=== PATIENT | female | born 1960 | race Caucasian/White ===

== ENCOUNTER 2018-08-06 05:54 | Inpatient (IN) ==
[2018-08-06] MEDS ORDERED: ONDANSETRON INJ 2 MG/ML 2 ML VIAL IV STA (06:14)
[2018-08-06] MEDS ORDERED: HYDROmorphone INJ 1 MG/ML SYRINGE IV STA ×2 (06:14→07:09)
[2018-08-06 06:39] LABS: Eosinophils # (auto) 0.03 K/uL (0-0.5); Eosinophils % (auto) 1.1 %; Hematocrit (blood only) 35.5 % (37-47); Hemoglobin 12.3 g/dL (12.0-16.0); Immature Granulocytes # (auto) 0.03 K/uL (0.00-0.02); Immature Granulocytes % (auto) 1.1 %; Lymphocytes # (auto) 0.51 K/uL (1.2-3.4); Lymphocytes % (auto) 18.5 %; Mean Corpuscular Hgb Conc 34.6 g/dL (32-36); Mean Corpuscular Volume 80.5 fL (80-100); Mean Platelet Volume 9.2 fL (7.4-10.4); Monocytes # (auto) 0.18 K/uL (0.11-0.59); Monocytes % (auto) 6.5 %; Neutrophils % (auto) 72.8 %; Platelet Count 164 K/uL (130-400); RDW Coefficient of Variation 14.5 % (11.5-14.5); RDW Standard Deviation 41.5 fL (36.4-46.3); Red Blood Count 4.41 M/uL (4.2-5.4); White Blood Count 2.75 K/uL (4.8-10.8)
[2018-08-06 06:56] LABS: Alanine Aminotransferase 95 U/L (12-78); Albumin Level 3.6 gm/dl (3.4-5.0); Aspartate Aminotransferase 96 U/L (15-37); BUN Creatinine Ratio 11.6 (10-20); Blood Urea Nitrogen 14 mg/dl (7-18); Calcium 10.1 mg/dl (8.5-10.1); Carbon Dioxide 26 mmol/L (21-32); Chloride 101 mmol/L (98-107); Est GFR (African American) 59.7; Est GFR (Non-African American) 51.5; Glucose 267 mg/dl (70-99); Potassium 3.7 mmol/L (3.5-5.1); Sodium 134 mmol/L (136-145)
[2018-08-06 06:59] LABS: Albumin Globulin Ratio 0.9 (0.9-2); Alkaline Phosphatase 161 U/L (45-117); Bilirubin,Total 0.9 mg/dl (0.2-1); Globulin 4.1 gm/dl (2.5-4.0); Total Protein 7.7 gm/dl (6.4-8.2)
[2018-08-06 07:08] LABS: Appearance Urine Clear (Clear); Bacteria Urine Automated Negative (Negative); Bilirubin Urine Negative (Negative); Blood Urine Trace (Negative); Color Urine Yellow; Glucose Urine UA 3+ (Negative); Ketones Urine Negative (Negative); Leukocyte Esterase Urine Negative (Negative); Nitrite Urine Negative (Negative); Protein Urine 1+ (Negative); RBC Urine Automated 0-4 /hpf (0-4); Specific Gravity Urine 1.012 (1.000-1.030); Urobilinogen Urine Negative (Negative); pH Urine 6.5 (4.5-7.5)
--- NOTE | 2018-08-06 07:14 | CT Scan Report ---
CT lumbar spine wo con CT DOSE: 1851.10 mGy.cm CLINICAL HISTORY: eval for mets HISTORY OF CANCER. BACK PAIN. TECHNIQUE: Helical images were acquired in transverse plane. Reformatted sagittal and coronal images were reviewed. A dose lowering technique was utilized adhering to the principles of ALARA. CONTRAST: No contrast was administered COMPARISON STUDY: None. FINDINGS: L1-2 level: There is a mild circumferential disc bulge. There is no significant spinal or foraminal s tenosis L2-3 level: There is a mild circumferential disc bulge. There is mild spinal stenosis L3-4 level: There is a mild circumferential disc bulge. There is mild spinal stenosis L4-5 level: There is marked degenerative changes within the disc. There is a circumferential disc bul ge. There is mild to moderate spinal stenosis L5-S1 level: There is disc degeneration. There is a circumferential disc bulge. There is right-sided foraminal narrowing. No acute fractures are visualized. No destructive lesions are visualized. There are enlarged aortocaval lymph nodes. There is suspected mild bilateral hydronephrosis. IMPRESSION: 1. Multilevel degenerative changes with multilevel disc bulges. multilevel spinal stenosis which is m ild to moderate at the L4-5 level. 2. Retroperitoneal adenopathy 3. Suspected mild bilateral hydronephrosis 4. No acute fractures. No destructive lesions are visualized on CT scanning. Electronically signed by: Karthik Murdock M.D. 08/06/2018 7:12 AM
--- NOTE | 2018-08-06 07:33 | CT Scan Report ---
CT OF THE PELVIS WITHOUT CONTRAST CLINICAL HISTORY: Left pelvic pain. Evaluate left hemipelvis to evaluate for metastases. COMPARISON STUDY: No previous studies for comparison. TECHNIQUE: Axial images of the pelvis were obtained without IV contrast. Sagittal and coronal reconst ructions were viewed. FINDINGS: Please get that the lumbar spine CT will be reported separately. No fracture or suspicious lesion is identified within the pelvis by CT. There is moderate retroperitoneal infiltration that ext ends into the perirectal region. There is no fluid collection is suggest an abscess. This is suboptim ally assessed on this unenhanced exam. There are multiple mildly enlarged para-aortic lymph nodes lucía t measure up to 2 x 1.2 cm. A large left external iliac lymph node measures 5 x 2.2 cm. A 4.1 cm roun d hyperdensity within the right anterior aspect of the pelvis is indeterminate although could reflect a uterine fibroid. Bilateral hydronephrosis, likely moderate in degree, is partially imaged on this exam. There is a 2 mm calculus within the lower pole of the right kidney. The ureters were not imaged in their entirety but no calculi are identified within visualized portions of the ureters. IMPRESSION: 1. No acute fracture or suspicious lesion within the pelvis by CT. 2. Pathologic left external lymph node which is suspicious for alba spread of disease. In addition, multiple mildly enlarged para-aortic and left iliac nodes. 3. Suspected moderate bilateral hydronephrosis, partially imaged on this exam. 2 mm right renal calcu benito. No ureteral calculi within visualized portions of the ureters. 4. Retroperitoneal/perirectal infiltration, a nonspecific finding. 5. 4.1 cm round hyperdensity within the right anterior aspect of the pelvis which is indeterminate bu t may reflect a fibroid. Electronically signed by: Frandy Bellamy M.D. 08/06/2018 7:31 AM
--- NOTE | 2018-08-06 08:03 | Emergency Department Note ---
Entered by Cynthia Phan acting as a scribe for Sofie Milan DO History of Present Illness General Chief complaint: Back Injury/Pain Stated complaint: BACK PAIN Time Seen by Provider: 08/06/18 06:05 Source: patient and family () Limitations: no limitations History of Present Illness Onset (ago): hour(s) 8 Location: back Severity: severe Pain Consistency: + constant Maximum Pain Intensity: 10 Relieved By: + none Associated symptoms: + nausea/vomiting; no chest pain and no shortness of breath The patient is a 58 year old female who presents to the Emergency Room with complaints of constant severe left-sided back pain that began last night at 2200. Her , at bedside notes that she complained of a headache throughout the day yesterday. The patient complains of vomiting. She denies any chest pain or SOB. The patient denies any modifying factors. She notes that she has stage 4 breast cancer, noting that it had metastasized to her back in the past. The patient's reports that she takes Afinitor. The patient's notes that she has a history of bilateral knee replacements. Her states that she has recently been doing more work, because he broke his leg. Home Medications Home Medications Medication Instructions Recorded Confirmed Type Vitamin Supplements 1 dose PO DAILY 08/06/18 08/06/18 History anastrozole [Arimidex] 1 mg PO DAILY 08/06/18 08/06/18 History everolimus (antineoplastic) 5 mg PO DAILY 08/06/18 08/06/18 History [Afinitor] Allergies Allergy/AdvReac Type Severity Reaction Status Date / Time amoxicillin Allergy Mild RASH Verified 12/08/14 06:41 Past Med/Surg History Medical History Breast cancer Metastasis from breast cancer Surgical History History of knee replacement procedure of left knee History of knee replacement procedure of right knee Social History Preferred Language: Mohawk Communication Ability: Effective Beliefs That Will Affect Care: None Current Living Situation: Spouse and Family Other Information That Helps Us Care for You: No Feels Safe at Home: Yes Safety Concerns: Feels Safe At This Time Smoking Status: Never smoker Hx Alcohol Use: No Hx Substance Use: No Review of Systems See HPI for pertinent positives & negatives. and A total of 10 systems reviewed and were otherwise negative Physical Exam Vital Signs Vital Signs - 24 hr 08/06/18 06:00 08/06/18 07:06 08/06/18 07:57 Temperature 36.4 C L Temperature Source Oral Sepsis Recent Fever Within 48 Hours No Sepsis Action Taken by Nursing No Action Required Pulse Rate 95 H Pulse Rate [Left Finger] 86 84 Pulse Rhythm [Left Finger] Pulse Strength [Left Finger] Respiratory Rate 18 18 14 Respiratory Effort / Characteristics Non-Labored Non-Labored Respiratory Depth Normal Normal Respiratory Pattern Regular Blood Pressure 200/118 H Blood Pressure [Right Arm] 238/134 H 202/117 H Blood Pressure Mean 145 Blood Pressure Mean [Right Arm] 168 145 Blood Pressure Position Standing Blood Pressure Position [Right Arm] Sitting Sitting Pulse Oximetry 97 97 91 Pulse Oximetry [Right Index Finger] Oxygen Delivery Method Room Air Room Air Room Air Oxygen Delivery Method [Right Index Finger] Oxygen Flow Rate Oxygen Flow Rate [Right Index Finger] 08/06/18 08:15 08/06/18 08:25 08/06/18 09:42 Temperature Temperature Source Sepsis Recent Fever Within 48 Hours Sepsis Action Taken by Nursing Pulse Rate Pulse Rate [Left Finger] 71 Pulse Rhythm [Left Finger] Pulse Strength [Left Finger] Respiratory Rate 14 Respiratory Effort / Characteristics Non-Labored Respiratory Depth Normal Respiratory Pattern Regular Blood Pressure Blood Pressure [Right Arm] 179/116 H Blood Pressure Mean Blood Pressure Mean [Right Arm] 137 Blood Pressure Position Blood Pressure Position [Right Arm] Sitting Pulse Oximetry 85 L 88 L 97 Pulse Oximetry [Right Index Finger] Oxygen Delivery Method Room Air Room Air Nasal Cannula Oxygen Delivery Method [Right Index Finger] Oxygen Flow Rate 0 2 Oxygen Flow Rate [Right Index Finger] 08/06/18 09:48 08/06/18 09:50 08/06/18 10:15 Temperature Temperature Source Sepsis Recent Fever Within 48 Hours Sepsis Action Taken by Nursing Pulse Rate Pulse Rate [Left Finger] 77 Pulse Rhythm [Left Finger] Pulse Strength [Left Finger] Respiratory Rate 21 Respiratory Effort / Characteristics Non-Labored Respiratory Depth Normal Respiratory Pattern Blood Pressure Blood Pressure [Right Arm] 190/94 H 161/92 H Blood Pressure Mean Blood Pressure Mean [Right Arm] 126 115 Blood Pressure Position Blood Pressure Position [Right Arm] Sitting Pulse Oximetry 97 Pulse Oximetry [Right Index Finger] Oxygen Delivery Method Nasal Cannula Room Air Oxygen Delivery Method [Right Index Finger] Oxygen Flow Rate Oxygen Flow Rate [Right Index Finger] 08/06/18 10:32 08/06/18 11:33 08/06/18 12:36 Temperature 36.2 C L 36.3 C L Temperature Source Oral Oral Sepsis Recent Fever Within 48 Hours Sepsis Action Taken by Nursing Pulse Rate Pulse Rate [Left Finger] 86 87 76 Pulse Rhythm [Left Finger] Regular Regular Pulse Strength [Left Finger] Normal Normal Respiratory Rate 20 22 16 Respiratory Effort / Characteristics Non-Labored Non-Labored Respiratory Depth Normal Normal Respiratory Pattern Regular Regular Blood Pressure Blood Pressure [Right Arm] 178/106 H 163/95 H 180/110 H Blood Pressure Mean Blood Pressure Mean [Right Arm] 130 117 133 Blood Pressure Position Blood Pressure Position [Right Arm] Lying Lying Pulse Oximetry 98 98 97 Pulse Oximetry [Right Index Finger] Oxygen Delivery Method Room Air Nasal Cannula Nasal Cannula Oxygen Delivery Method [Right Index Finger] Oxygen Flow Rate 2 2 Oxygen Flow Rate [Right Index Finger] 08/06/18 13:45 08/06/18 15:58 08/06/18 16:00 Temperature 36.5 C Temperature Source Oral Sepsis Recent Fever Within 48 Hours Sepsis Action Taken by Nursing Pulse Rate Pulse Rate [Left Finger] 84 94 H Pulse Rhythm [Left Finger] Regular Pulse Strength [Left Finger] Normal Respiratory Rate 16 20 Respiratory Effort / Characteristics Non-Labored Non-Labored Respiratory Depth Normal Normal Respiratory Pattern Regular Blood Pressure Blood Pressure [Right Arm] 153/87 H 170/102 H Blood Pressure Mean Blood Pressure Mean [Right Arm] 109 124 Blood Pressure Position Blood Pressure Position [Right Arm] Lying Pulse Oximetry 94 97 Pulse Oximetry [Right Index Finger] 97 Oxygen Delivery Method Nasal Cannula Nasal Cannula Nasal Cannula Oxygen Delivery Method [Right Index Finger] Nasal Cannula Oxygen Flow Rate 2 2 2 Oxygen Flow Rate [Right Index Finger] 2 08/06/18 16:04 08/06/18 17:36 08/06/18 19:20 Temperature 36.4 C L Temperature Source Oral Sepsis Recent Fever Within 48 Hours Sepsis Action Taken by Nursing Pulse Rate Pulse Rate [Left Finger] 96 H 101 H 95 H Pulse Rhythm [Left Finger] Pulse Strength [Left Finger] Respiratory Rate 18 20 20 Respiratory Effort / Characteristics Non-Labored Respiratory Depth Normal Respiratory Pattern Blood Pressure Blood Pressure [Right Arm] 180/106 H 174/106 H 172/96 H Blood Pressure Mean Blood Pressure Mean [Right Arm] 130 128 121 Blood Pressure Position Blood Pressure Position [Right Arm] Lying Pulse Oximetry 96 Pulse Oximetry [Right Index Finger] Oxygen Delivery Method Nasal Cannula Oxygen Delivery Method [Right Index Finger] Oxygen Flow Rate 2 Oxygen Flow Rate [Right Index Finger] 08/06/18 23:01 Temperature 36.5 C Temperature Source Oral Sepsis Recent Fever Within 48 Hours Sepsis Action Taken by Nursing Pulse Rate Pulse Rate [Left Finger] 95 H Pulse Rhythm [Left Finger] Pulse Strength [Left Finger] Respiratory Rate 18 Respiratory Effort / Characteristics Respiratory Depth Respiratory Pattern Blood Pressure Blood Pressure [Right Arm] 170/92 H Blood Pressure Mean Blood Pressure Mean [Right Arm] 118 Blood Pressure Position Blood Pressure Position [Right Arm] Lying Pulse Oximetry 97 Pulse Oximetry [Right Index Finger] Oxygen Delivery Method Nasal Cannula Oxygen Delivery Method [Right Index Finger] Oxygen Flow Rate 2 Oxygen Flow Rate [Right Index Finger] General: Uncomfortable appearing. HEENT: Head - normocephalic and atraumatic Pupils are equal, round, and reactive to light. Extraocular eye muscles are intact, and sclera are anicteric. Nose - moist nasal mucosa without discharge. Mouth - moist buccal mucosa. Oropharynx is nonerythematous and there is no tonsillar exudate or edema noted. Neck: Supple; no JVD, nuchal rigidity, cervical lymphadenopathy. Heart: Regular rate and rhythm. There is a normal S1 and S2 with no murmurs, clicks, or gallops appreciated. Lungs: Clear to auscultation bilaterally with no wheezes, rales, or rhonchi. Abdomen: Soft, completely nontender, nondistended, with good bowel sounds. There are no palpable pulsatile masses or hepatosplenomegaly. There is no guarding, rigidity, or rebound noted. Extremities: No evidence of cyanosis, clubbing, or edema. There are easily palpable peripheral pulses. Skin: warm and dry with good turgor and no rashes. Pale. Course 0608: Past medical records reviewed. The patient was evaluated in room C05, and a complete history and physical examination were performed. A saline lock was initiated, and labs were drawn as stated above. 0614: Dilaudid 1 mg IV, Zofran 4 mg IV 0659: I checked on the patient. She had gone for CAT scan. She is still complaining of left lower back pain. 07: Dialudid 1 mg IV 0723: I asked the patient if she has a history of hyperglycemia, and she stated that it is "sometimes borderline." Her reported that it's "always between 90 and 100." 0744: I checked on the patient, and she stated that she only had minimal relief from the medication. She told me that she doesn't have a PCP, and she gets all of her care in [place]. 0757: I spoke to Dr. Cho, [facility] hospitalist, about the patient's case. Dr. Cho with further evaluate the patient. Consultations Consultation #1: I spoke to Dr. Cho, [facility] hospitalist, about the patient's case. Dr. Cho with further evaluate the patient. Time: 07:57 Administered Medications Anastrozole (Arimidex) 1 mg PO DAILY [facility] Stop: 09/05/18 10:29 Last Admin: 08/06/18 12:02 Dose: Not Given Documented by: [id number] Dexamethasone (Decadron) 5 mg PO QID DEVI Stop: 09/05/18 12:59 Last Admin: 08/06/18 21:01 Dose: 5 mg Documented by: [id number] Admin: 08/06/18 18:21 Dose: 5 mg Documented by: [id number] Admin: 08/06/18 12:25 Dose: Not Given Documented by: [id number] Heparin Sodium (Porcine) (Heparin Sodium (Porcine)) 5,000 units SQ Q8 DEVI Stop: 09/05/18 15:29 Last Admin: 08/06/18 21:02 Dose: 5,000 units Documented by: [id number] Cosigned by: [id number] Admin: 08/06/18 18:17 Dose: Not Given Documented by: [id number] Sodium Chloride (Nss 1000ml) 1,000 mls @ 80 mls/hr IV .[id number] DEVI Stop: 08/07/18 10:29 Last Admin: 08/06/18 21:06 Dose: 80 mls/hr Documented by: [id number] Infusion: 08/06/18 21:06 Dose: 80 mls/hr Documented by: [id number] Admin: 08/06/18 10:55 Dose: 80 mls/hr Documented by: [id number] Insulin Aspart (Novolog Flexpen) 0 units SC ACHS DEVI Stop: 09/05/18 11:29 Last Admin: 08/06/18 21:03 Dose: 4 units Documented by: [id number] Cosigned by: [id number] Admin: 08/06/18 18:18 Dose: 2 units Documented by: [id number] Cosigned by: [id number] Admin: 08/06/18 12:24 Dose: 6 units Documented by: [id number] Cosigned by: [id number] Miscellaneous (Order Awaiting Action) 1 ea N/A QS DEVI Stop: 09/05/18 11:14 Last Admin: 08/06/18 23:38 Dose: Not Given Documented by: [id number] Admin: 08/06/18 16:21 Dose: Not Given Documented by: [id number] Admin: 08/06/18 12:03 Dose: Not Given Documented by: [id number] Ondansetron HCl (Zofran) 4 mg IV Q4H PRN PRN Reason: Nausea And Vomiting Stop: 09/05/18 10:29 Last Admin: 08/07/18 00:13 Dose: 4 mg Documented by: [id number] Admin: 08/06/18 15:59 Dose: 4 mg Documented by: [id number] Admin: 08/06/18 12:33 Dose: 4 mg Documented by: [id number] Discontinued Medications Amlodipine Besylate (Norvasc) 5 mg PO NOW ONE Stop: 08/06/18 17:40 Last Admin: 08/06/18 18:22 Dose: 5 mg Documented by: [id number] Hydralazine HCl (Hydralazine Hcl) 10 mg IV NOW STA Stop: 08/06/18 08:55 Last Admin: 08/06/18 09:42 Dose: 10 mg Documented by: [id number] Hydralazine HCl (Hydralazine Hcl) 10 mg IV Q6H PRN PRN Reason: Hypertension Stop: 09/05/18 10:29 Last Admin: 08/06/18 16:07 Dose: 10 mg Documented by: [id number] Hydromorphone HCl (Dilaudid) 1 mg IV NOW STA Stop: 08/06/18 06:15 Last Admin: 08/06/18 06:32 Dose: 1 mg Documented by: [id number] Hydromorphone HCl (Dilaudid) 1 mg IV NOW STA Stop: 08/06/18 07:10 Last Admin: 08/06/18 07:16 Dose: 1 mg Documented by: [id number] Metoclopramide HCl (Reglan) 5 mg IV ONE ONE Stop: 08/06/18 17:31 Last Admin: 08/06/18 18:19 Dose: 5 mg Documented by: [id number] Miscellaneous (Patient's Height And/Or Weight Needed) 1 ea N/A Q2H DEVI Stop: 09/05/18 15:14 Last Admin: 08/06/18 16:20 Dose: 1 ea Documented by: [id number] Ondansetron HCl (Zofran) 4 mg IV NOW STA Stop: 08/06/18 06:15 Last Admin: 08/06/18 06:33 Dose: 4 mg Documented by: [id number] Propranolol HCl (Inderal) 40 mg PO NOW STA Stop: 08/06/18 17:41 Last Admin: 08/06/18 18:22 Dose: 40 mg Documented by: [id number] Medical Decision Making Differential Diagnosis The differential diagnosis includes: metastasis to left lumbar spine, metastasis to left pelvis, and left-sided ureteral calculi, or low back strain. Medical Records Attestation: I reviewed the patient's medical records. Home Medications Current Medication List: was personally reviewed by me Laboratory Data Attestation: I reviewed the patient's lab results. Result diagrams: 08/06/18 06:15 08/06/18 06:15 Lab Results 08/06/18 08/06/18 08/06/18 Range/Units 06:15 06:15 06:15 WBC 2.75 L (4.8-10.8) K/uL RBC 4.41 (4.2-5.4) M/uL Hgb 12.3 (12.0-16.0) g/dL Hct 35.5 L (37-47) % MCV 80.5 (80-100) fL MCH 27.9 (25-34) pg MCHC 34.6 (32-36) g/dL RDW Std Deviation 41.5 (36.4-46.3) fL RDW Coeff of [place] 14.5 (11.5-14.5) % Plt Count 164 (130-400) K/uL MPV 9.2 (7.4-10.4) fL Immature Gran % (Auto) 1.1 % Neut % (Auto) 72.8 % Lymph % (Auto) 18.5 % [place] % (Auto) 6.5 % Eos % (Auto) 1.1 % Baso % (Auto) 0.0 % Immature Gran # (Auto) 0.03 H (0.00-0.02) K/uL Neut # (Auto) 2.00 (1.4-6.5) K/uL Lymph # (Auto) 0.51 L (1.2-3.4) K/uL [place] # (Auto) 0.18 (0.11-0.59) K/uL Eos # (Auto) 0.03 (0-0.5) K/uL Baso # (Auto) 0.00 (0-0.2) K/uL PT 9.8 (9.0-12.0) Seconds INR 1.0 (0.9-1.1) APTT 28.6 (21.0-31.0) Seconds PTT Ratio 1.1 Sodium 134 L (136-145) mmol/L Potassium 3.7 (3.5-5.1) mmol/L Chloride 101 (98-107) mmol/L Carbon Dioxide 26 (21-32) mmol/L Anion Gap 7.0 (3-11) BUN 14 (7-18) mg/dl Creatinine 1.16 (0.6-1.2) mg/dl Est Cr Clr Drug Dosing Not Reportable Est GFR ( Amer) 59.7 Est GFR (Non-Af Amer) 51.5 BUN/Creatinine Ratio 11.6 (10-20) Glucose 267 H (70-99) mg/dl POC Glucose (70-99) Calcium 10.1 (8.5-10.1) mg/dl Total Bilirubin 0.9 (0.2-1) mg/dl AST 96 H (15-37) U/L ALT 95 H (12-78) U/L Alkaline Phosphatase 161 H (45-117) U/L Total Protein 7.7 (6.4-8.2) gm/dl Albumin 3.6 (3.4-5.0) gm/dl Globulin 4.1 H (2.5-4.0) gm/dl Albumin/Globulin Ratio 0.9 (0.9-2) Urine Color Urine Appearance (Clear) Urine pH (4.5-7.5) Ur Specific [place] (1.000-1.030) Urine Protein (Negative) Urine Glucose (UA) (Negative) Urine Ketones (Negative) Urine Blood (Negative) Urine Nitrite (Negative) Urine Bilirubin (Negative) Urine Urobilinogen (Negative) Ur Leukocyte Esterase (Negative) Urine WBC (Auto) (0-5) /hpf Urine RBC (Auto) (0-4) /hpf U Hyaline Cast (Auto) (0-5) /lpf U Epithel Cells (Auto) (0-5) /lpf Urine Bacteria (Auto) (Negative) 08/06/18 08/06/18 08/06/18 Range/Units 06:45 11:44 16:48 WBC (4.8-10.8) K/uL RBC (4.2-5.4) M/uL Hgb (12.0-16.0) g/dL Hct (37-47) % MCV (80-100) fL MCH (25-34) pg MCHC (32-36) g/dL RDW Std Deviation (36.4-46.3) fL RDW Coeff of Jazmyne (11.5-14.5) % Plt Count (130-400) K/uL MPV (7.4-10.4) fL Immature Gran % (Auto) % Neut % (Auto) % Lymph % (Auto) % [place] % (Auto) % Eos % (Auto) % Baso % (Auto) % Immature Gran # (Auto) (0.00-0.02) K/uL Neut # (Auto) (1.4-6.5) K/uL Lymph # (Auto) (1.2-3.4) K/uL [place] # (Auto) (0.11-0.59) K/uL Eos # (Auto) (0-0.5) K/uL Baso # (Auto) (0-0.2) K/uL PT (9.0-12.0) Seconds INR (0.9-1.1) APTT (21.0-31.0) Seconds PTT Ratio Sodium (136-145) mmol/L Potassium (3.5-5.1) mmol/L Chloride (98-107) mmol/L Carbon Dioxide (21-32) mmol/L Anion Gap (3-11) BUN (7-18) mg/dl Creatinine (0.6-1.2) mg/dl Est Cr Clr Drug Dosing Est GFR ( Amer) Est GFR (Non-Af Amer) BUN/Creatinine Ratio (10-20) Glucose (70-99) mg/dl POC Glucose 273 H 212 H (70-99) Calcium (8.5-10.1) mg/dl Total Bilirubin (0.2-1) mg/dl AST (15-37) U/L ALT (12-78) U/L Alkaline Phosphatase (45-117) U/L Total Protein (6.4-8.2) gm/dl Albumin (3.4-5.0) gm/dl Globulin (2.5-4.0) gm/dl Albumin/Globulin Ratio (0.9-2) Urine Color Yellow Urine Appearance Clear (Clear) Urine pH 6.5 (4.5-7.5) Ur Specific [place] 1.012 (1.000-1.030) Urine Protein 1+ H (Negative) Urine Glucose (UA) 3+ H (Negative) Urine Ketones Negative (Negative) Urine Blood Trace H (Negative) Urine Nitrite Negative (Negative) Urine Bilirubin Negative (Negative) Urine Urobilinogen Negative (Negative) Ur Leukocyte Esterase Negative (Negative) Urine WBC (Auto) 1-5 (0-5) /hpf Urine RBC (Auto) 0-4 (0-4) /hpf U Hyaline Cast (Auto) 1-5 (0-5) /lpf U Epithel Cells (Auto) 10-20 H (0-5) /lpf Urine Bacteria (Auto) Negative (Negative) 08/06/18 Range/Units 19:52 WBC (4.8-10.8) K/uL RBC (4.2-5.4) M/uL Hgb (12.0-16.0) g/dL Hct (37-47) % MCV (80-100) fL MCH (25-34) pg MCHC (32-36) g/dL RDW Std Deviation (36.4-46.3) fL RDW Coeff of Jazmy[place] (11.5-14.5) % Plt Count (130-400) K/uL MPV (7.4-10.4) fL Immature Gran % (Auto) % Neut % (Auto) % Lymph % (Auto) % [place] % (Auto) % Eos % (Auto) % Baso % (Auto) % Immature Gran # (Auto) (0.00-0.02) K/uL Neut # (Auto) (1.4-6.5) K/uL Lymph # (Auto) (1.2-3.4) K/uL [place] # (Auto) (0.11-0.59) K/uL Eos # (Auto) (0-0.5) K/uL Baso # (Auto) (0-0.2) K/uL PT (9.0-12.0) Seconds INR (0.9-1.1) APTT (21.0-31.0) Seconds PTT Ratio Sodium (136-145) mmol/L Potassium (3.5-5.1) mmol/L Chloride (98-107) mmol/L Carbon Dioxide (21-32) mmol/L Anion Gap (3-11) BUN (7-18) mg/dl Creatinine (0.6-1.2) mg/dl Est Cr Clr Drug Dosing Est GFR ( Amer) Est GFR (Non-Af Amer) BUN/Creatinine Ratio (10-20) Glucose (70-99) mg/dl POC Glucose 264 H (70-99) Calcium (8.5-10.1) mg/dl Total Bilirubin (0.2-1) mg/dl AST (15-37) U/L ALT (12-78) U/L Alkaline Phosphatase (45-117) U/L Total Protein (6.4-8.2) gm/dl Albumin (3.4-5.0) gm/dl Globulin (2.5-4.0) gm/dl Albumin/Globulin Ratio (0.9-2) Urine Color Urine Appearance (Clear) Urine pH (4.5-7.5) Ur Specific [place] (1.000-1.030) Urine Protein (Negative) Urine Glucose (UA) (Negative) Urine Ketones (Negative) Urine Blood (Negative) Urine Nitrite (Negative) Urine Bilirubin (Negative) Urine Urobilinogen (Negative) Ur Leukocyte Esterase (Negative) Urine WBC (Auto) (0-5) /hpf Urine RBC (Auto) (0-4) /hpf U Hyaline Cast (Auto) (0-5) /lpf U Epithel Cells (Auto) (0-5) /lpf Urine Bacteria (Auto) (Negative) Imaging Data Radiologist's Impression: Radiology results as stated below per my review and the radiologist's interpretation: CT lumbar spine wo con CT DOSE: 1851.10 mGy.cm CLINICAL HISTORY: eval for mets HISTORY OF CANCER. BACK PAIN. TECHNIQUE: Helical images were acquired in transverse plane. Reformatted sagittal and coronal images were reviewed. A dose lowering technique was utilized adhering to the principles of ALARA. CONTRAST: No contrast was administered COMPARISON STUDY: None. FINDINGS: L1-2 level: There is a mild circumferential disc bulge. There is no significant spinal or foraminal stenosis L2-3 level: There is a mild circumferential disc bulge. There is mild spinal stenosis L3-4 level: There is a mild circumferential disc bulge. There is mild spinal stenosis L4-5 level: There is marked degenerative changes within the disc. There is a circumferential disc bulge. There is mild to moderate spinal stenosis L5-S1 level: There is disc degeneration. There is a circumferential disc bulge. There is right-sided foraminal narrowing. No acute fractures are visualized. No destructive lesions are visualized. There are enlarged aortocaval lymph nodes. There is suspected mild bilateral hydronephrosis. IMPRESSION: 1. Multilevel degenerative changes with multilevel disc bulges. multilevel spinal stenosis which is mild to moderate at the L4-5 level. 2. Retroperitoneal adenopathy 3. Suspected mild bilateral hydronephrosis 4. No acute fractures. No destructive lesions are visualized on CT scanning. Electronically signed by: Karthik Murdock M.D. 08/06/2018 7:[address] OF THE PELVIS WITHOUT CONTRAST CLINICAL HISTORY: Left pelvic pain. Evaluate left hemipelvis to evaluate for metastases. COMPARISON STUDY: No previous studies for comparison. TECHNIQUE: Axial images of the pelvis were obtained without IV contrast. Sagittal and coronal reconstructions were viewed. FINDINGS: Please get that the lumbar spine CT will be reported separately. No fracture or suspicious lesion is identified within the pelvis by CT. There is moderate retroperitoneal infiltration that extends into the perirectal region. There is no fluid collection is suggest an abscess. This is suboptimally assessed on this unenhanced exam. There are multiple mildly enlarged para-aortic lymph nodes that measure up to 2 x 1.2 cm. A large left external iliac lymph node measures 5 x 2.2 cm. A 4.1 cm round hyperdensity within the right anterior aspect of the pelvis is indeterminate although could reflect a uterine fibroid. Bilateral hydronephrosis, likely moderate in degree, is partially imaged on this exam. There is a 2 mm calculus within the lower pole of the right kidney. The ureters were not imaged in their entirety but no calculi are identified within visualized portions of the ureters. IMPRESSION: 1. No acute fracture or suspicious lesion within the pelvis by CT. 2. Pathologic left external lymph node which is suspicious for alba spread of disease. In addition, multiple mildly enlarged para-aortic and left iliac nodes. 3. Suspected moderate bilateral hydronephrosis, partially imaged on this exam. 2 mm right renal calculus. No ureteral calculi within visualized portions of the ureters. 4. Retroperitoneal/perirectal infiltration, a nonspecific finding. 5. 4.1 cm round hyperdensity within the right anterior aspect of the pelvis which is indeterminate but may reflect a fibroid. Electronically signed by: Frandy Bellamy M.D. 08/06/2018 7:31 AM Blood Pressure Blood Pressure Findings: Elevated blood pressure Blood Pressure Disposition: further management by hospitalist CHOLO Wyman The patient is a 58 year old female who presents to the Emergency Room with complaints of constant severe left-sided back pain that began last night at 2200. The patient has a history of stage IV breast cancer with previous metastasis to T9 in 2011 status post surgery. Patient had currently been receiving oral chemotherapy and was described as being any holding pattern according to the family. The patient did tell me that she stopped taking the chemotherapy approximately 12-16 days ago. The patient's pain in her left low back was sudden in onset today. She did have some hematuria but CT scan showed no evidence of an obvious ureteral calculi. However, there was significant bilateral hydronephrosis and what appeared to be moderate periaortic lymphadenopathy. This lymphadenopathy was concerning in light of the breast cancer history. The patient was also noted to be significantly hypertensive some of this was thought to be situational secondary to pain and anxiety. However, I believe the patient most likely has a history of underlying untreated hypertension. Patient was also noted to be significantly hyperglycemic with no history of this either. The patient was leukopenic. There was no neutropenia. She was afebrile. The patient will require admission to the hospital for intractable left flank pain and further ultrasound evaluation of the kidneys and attention to the blood pressure and hyperglycemia. Impression & Plan Left flank pain, Hyperglycemia, Bilateral hydronephrosis, Metastatic breast cancer, Hypertension, Leukopenia Discharge Plan Visit Data *Final* Discharge Date/Time: 08/06/18 10:15 Chief Complaint: Back Injury/Pain Stated Complaint: BACK PAIN ED Provider: Sofie Milan Discharge Problem: Left flank pain, Hyperglycemia, Bilateral hydronephrosis, Metastatic breast cancer, Hypertension, Leukopenia Patient Disposition: Admitted As Inpatient Discharge Instructions Interventions: ED Discharge Assessment Last Done: 08/06/18 10:15 Discharge Problem: Hypertension Qualifiers: Hypertension type: unspecified Qualified Code(s): I10 - Essential (primary) hypertension Leukopenia Qualifiers: Leukopenia type: other Qualified Code(s): D72.818 - Other decreased white blood cell count The scribe's documentation has been prepared under my direction and personally reviewed by me in its entirety. I confirm that the note above accurately reflects all work, treatment, procedures, and medical decision making performed by me.
--- NOTE | 2018-08-06 08:11 | History & Physical Report ---
Date of Service August 06, 2018 Assessment & Plan (1) Bilateral hydronephrosis: -Admit to [facility] -CT imaging reviewed, mild hydronephrosis due to lymph node involvement, no nephrolithiasis which appears to be obstructing. Consider urology consultation. -Will ask oncology to consult. Patient follows with oncology in [facility], [place], operated by [facility], records have been requested. -Creatinine and BUN are within normal limits, will continue with IVF 80 mL/h -UA does not appear grossly infected, follow UCx, pt denies urinary complaints, tolerating fluid intake well but family is concerned she normally does not drink enough water. -Follow BCx -Pain control with morphine sulfate IV prn and Dilaudid IV if necessary. (2) Metastatic breast cancer: -Originally diagnosed in 2008, metastasis to T9 in 2010. Patient is status post multiple chemotherapy regimens and radiation to the spine. -CT showing degenerative disc at the level of L4-L5, L5-S1, retroperitoneal lymphadenopathy, increased lymphadenopathy around the aorta and iliacs -Oncology consulted, requesting outside records -Continue Arimidex and Afinitor (3) Hypertension: -Patient reports BP is not normally elevated however she does get anxious when in hospitals or around medical personnel -BP is 202/117, will order IV hydralazine in the interim -Consider renal artery (4) Left flank pain: (5) Hyperglycemia: - Glucose elevaed at 267 on PRP at time of admission - ISS with accuchecks and will check A1C now. Pt denies hx of DM or elevated glucose previously. (6) Leukopenia: - WBC is 2.75 with abs. neutrophils of 2.0. Pt is not neutropenic. Denies fevers. DVT ppx: Heparin subq, teds, scds History of Present Illness Chief Complaint: Left flank pain Primary Care Provider: NO PCP This is a 58-year-old female with past medical history of metastatic breast cancer originally diagnosed in 2000-01-27 spine, follows with oncology in [place], currently on Afinitor. She presents today with increased left-sided flank pain which occurred in the middle the night. The patient was unable to sleep through this. She denies radiation of the pain to any other location. Upon presentation to the ER the patient's blood pressure is elevated 202/117 her glucose is 267, elevated liver functions, and has bilateral mild hydronephrosis on CT imaging. Patient reports pain started around 11 PM last night and that she vomited once due to its intensity. She denies any abdominal pain, nausea, bowel changes, urinary changes, fever, sweats or chills. She has been in her normal state of health until yesterday. Patient notes that her pain is aggravated when taking deep breaths but that his it has been significantly improved status post Dilaudid IV 2 mg total. She has been doing more physical activity recently due to her having a surgery on his right lower leg. Allergies Allergy/AdvReac Type Severity Reaction Status Date / Time amoxicillin Allergy Mild RASH Verified 12/08/14 06:41 Home Medications Home Medications Medication Instructions Recorded Confirmed Type Vitamin Supplements 1 dose PO DAILY 08/06/18 08/06/18 History anastrozole [Arimidex] 1 mg PO DAILY 08/06/18 08/06/18 History everolimus (antineoplastic) 5 mg PO DAILY 08/06/18 08/06/18 History [Afinitor] Past Med/Surg History Medical History Hyperglycemia (Acute) Left flank pain (Acute) Bilateral hydronephrosis (Acute) Metastatic breast cancer (Acute) Hypertension (Acute) Leukopenia (Acute) Breast cancer Metastasis from breast cancer Surgical History History of knee replacement procedure of left knee History of knee replacement procedure of right knee Family History Other Family history non-contributory Social History Communication Ability: Effective Beliefs That Will Affect Care: None Current Living Situation: Spouse and Family Other Information That Helps Us Care for You: No Feels Safe at Home: Yes Safety Concerns: Feels Safe At This Time Smoking Status: Never smoker Hx Alcohol Use: No Hx Substance Use: No Review of Systems Constitutional: No fever, sweats or chills Eyes: No diplopia, no worsening or blurred vision ENT: normal hearing, no trouble swallowing Respiratory: No cough, sputum, dyspnea at rest or on exertion Cardiovascular: No chest pain, tightness or palpitations Abdomen: + Left flank pain now improved, no pain, nausea, vomiting, diarrhea or constipation Musculoskeletal: No joint pain, calf pain, swelling Neurologic: No weakness, numbness/tingling, or balance problems Psychiatric: No anxiety or depression Skin: + rash over the left forearm, no itch Physical Exam Vital Signs (Past 24 Hours): Last Vital Signs Temp 36.4 C L 08/06/18 06:00 Pulse 84 08/06/18 07:57 Resp 14 08/06/18 07:57 BP 202/117 H 08/06/18 07:57 Pulse Ox 91 08/06/18 07:57 Physical Exam: General: awake, alert, no apparent distress, + obese Head: Normocephalic, atraumatic ENT: PERRL, EOMI, no pharyngeal exudate, mucous membranes moist Chest: Clear to auscultation, on room air, no adventitious breath sounds Cardiac: Regular rate and rhythm, no murmur, no JVD, normal peripheral pulses, good capillary refill Abdominal: NABS x 4 quadrants, soft, nontender to palpation, no rebound, guarding or tenderness Extremities: + erythematous rash over the left forearm, peripheral edema of BLE nonpitting, otherwise normal inspection, calfs nontender to palpation Psych: Normal mood and affect Neuro: AAO x 3, strength intact bilaterally and related 5/5, no motor deficits, speech is clear, no peripheral sensory deficits Results & Data Diagnostic Findings CT OF THE PELVIS WITHOUT CONTRAST CLINICAL HISTORY: Left pelvic pain. Evaluate left hemipelvis to evaluate for metastases. COMPARISON STUDY: No previous studies for comparison. TECHNIQUE: Axial images of the pelvis were obtained without IV contrast. Sagittal and coronal reconstructions were viewed. FINDINGS: Please get that the lumbar spine CT will be reported separately. No fracture or suspicious lesion is identified within the pelvis by CT. There is moderate retroperitoneal infiltration that extends into the perirectal region. There is no fluid collection is suggest an abscess. This is suboptimally assessed on this unenhanced exam. There are multiple mildly enlarged para-aortic lymph nodes that measure up to 2 x 1.2 cm. A large left external iliac lymph node measures 5 x 2.2 cm. A 4.1 cm round hyperdensity within the right anterior aspect of the pelvis is indeterminate although could reflect a uterine fibroid. Bilateral hydronephrosis, likely moderate in degree, is partially imaged on this exam. There is a 2 mm calculus within the lower pole of the right kidney. The ureters were not imaged in their entirety but no calculi are identified within visualized portions of the ureters. IMPRESSION: 1. No acute fracture or suspicious lesion within the pelvis by CT. 2. Pathologic left external lymph node which is suspicious for alba spread of disease. In addition, multiple mildly enlarged para-aortic and left iliac nodes. 3. Suspected moderate bilateral hydronephrosis, partially imaged on this exam. 2 mm right renal calculus. No ureteral calculi within visualized portions of the ureters. 4. Retroperitoneal/perirectal infiltration, a nonspecific finding. 5. 4.1 cm round hyperdensity within the right anterior aspect of the pelvis which is indeterminate but may reflect a fibroid. CT lumbar spine wo con CT DOSE: 1851.10 mGy.cm CLINICAL HISTORY: eval for mets HISTORY OF CANCER. BACK PAIN. TECHNIQUE: Helical images were acquired in transverse plane. Reformatted sagittal and coronal images were reviewed. A dose lowering technique was utilized adhering to the principles of ALARA. CONTRAST: No contrast was administered COMPARISON STUDY: None. FINDINGS: L1-2 level: There is a mild circumferential disc bulge. There is no significant spinal or foraminal stenosis L2-3 level: There is a mild circumferential disc bulge. There is mild spinal stenosis L3-4 level: There is a mild circumferential disc bulge. There is mild spinal stenosis L4-5 level: There is marked degenerative changes within the disc. There is a circumferential disc bulge. There is mild to moderate spinal stenosis L5-S1 level: There is disc degeneration. There is a circumferential disc bulge. There is right-sided foraminal narrowing. No acute fractures are visualized. No destructive lesions are visualized. There are enlarged aortocaval lymph nodes. There is suspected mild bilateral hydronephrosis. IMPRESSION: 1. Multilevel degenerative changes with multilevel disc bulges. multilevel spinal stenosis which is mild to moderate at the L4-5 level. 2. Retroperitoneal adenopathy 3. Suspected mild bilateral hydronephrosis 4. No acute fractures. No destructive lesions are visualized on CT scanning. Code Status & VTE Plan Code Status Full -was discussed with her and son at bedside. Supervising Physician Co-Signing Physician Notes Patient seen and examined at bedside. During my face to face encounter, I performed a history and physical examination. I reviewed and agree with above documentation, except for the following Patient is having signs of hydronephrosis. I am concerned over lymph nodes perhaps causing the a bilateral obstruction to both of her kidneys. However her creatinine is normal. will monitor. May need urology consult. Hypertensive urgerncy Patient blood pressure is elevated, and will start CCB and beta sheldon x1 and will monitor. Will re-eval in [facility] if this needfs to be continued. (1) Leukopenia Leukopenia type: other Qualified Code(s): D72.818 - Other decreased white blood cell count (2) Hypertension Hypertension type: unspecified Qualified Code(s): I10 - Essential (primary) hypertension
[2018-08-06] MEDS ORDERED: HydrALAZINE HCL 20 MG/ML VIAL IV STA (08:54)
[2018-08-06] MEDS ORDERED: MoRPHine SULFATE 2 MG/ML CARP IV PRN (10:30)
[2018-08-06] MEDS ORDERED: GLUCOSE 40% GEL 15 GM TUBE PO PRN (10:30)
[2018-08-06] MEDS ORDERED: HydrALAZINE HCL 20 MG/ML VIAL IV PRN ×2 (10:30→23:31)
[2018-08-06] MEDS ORDERED: DEXTROSE 50% 50 ML SYRINGE IV PRN (10:30)
[2018-08-06] MEDS ORDERED: GLUCAGON FOR INJ 1 MG VIAL SQ PRN (10:30)
[2018-08-06] MEDS ORDERED: CARBOHYDRATES FOR HYPOGLYCEMIA PO PRN (10:30)
[2018-08-06] MEDS ORDERED: VITAMIN SUPPLEMENTS PO SCH (10:30)
[2018-08-06] MEDS ORDERED: ACETAMINOPHEN 325 MG TAB PO PRN (10:30)
[2018-08-06] MEDS ORDERED: GLUCOSE 10 TABS/TUBE PO PRN (10:30)
[2018-08-06] MEDS: SODIUM CHLORIDE 0.9% 1000ML 1,000 ML IV SCH ×2 (10:55→21:06)
[2018-08-06 11:43] LABS: Partial Thromboplastin Ratio 1.1; Partial Thromboplastin Time 28.6 Seconds (21.0-31.0); Prothrombin Time 9.8 Seconds (9.0-12.0)
[2018-08-06] MEDS: ANASTROZOLE 1 MG TAB PO SCH (12:02)
[2018-08-06] MEDS: INSULIN ASPART 100 UNITS/ML 3 ML PEN SC SCH ×3 (12:24→21:03)
[2018-08-06] MEDS: dexAMETHasone 1 MG TAB PO SCH ×3 (12:25→21:01)
[2018-08-06] MEDS: ONDANSETRON INJ 2 MG/ML 2 ML VIAL IV PRN ×2 (12:33→15:59)
[2018-08-06] MEDS ORDERED: dexAMETHasone 1 MG TAB PO SCH (13:00)
[2018-08-06] MEDS ORDERED: DEXAMETHASONE 5 MG/5 ML UDP PO SCH (13:00)
[2018-08-06] MEDS: PATIENT'S HEIGHT AND/OR WEIGHT NEEDED SCH (16:20)
[2018-08-06] MEDS ORDERED: METOCLOPRAMIDE HCL INJ 5 MG/ML 2 ML VIAL IV ONE (17:30)
[2018-08-06] MEDS ORDERED: AMLODIPINE BESYLATE 5 MG TAB PO ONE (17:39)
[2018-08-06] MEDS ORDERED: PROPRANOLOL HCL 20 MG TAB PO STA (17:40)
[2018-08-06] MEDS: HEPARIN SOD 5,000 UNIT/0.5 ML VIAL SQ SCH ×2 (18:17→21:02)
--- NOTE | 2018-08-06 21:06 | Ultrasound Report ---
US renal/blad retro comp CLINICAL HISTORY: 58 years-old Female presenting with bilateral hydronephrosis. TECHNIQUE: Real-time grayscale and limited color Doppler ultrasound imaging of the kidneys and ceme r was performed. COMPARISON: CT pelvis from 08/06/2018. FINDINGS: Right kidney: Normal echogenicity of renal parenchyma. Right kidney measures 9.7 cm. Moderate hydrone phrosis. No convincing evidence of calculus or mass. Left kidney: Normal echogenicity of renal parenchyma. Left kidney measures 10.9 cm. Moderate hydronep hrosis. No convincing evidence of calculus or mass. Bladder: Decompressed limiting evaluation. Bilateral ureteral jets present. Other: Hypoechoic mass in the midline/right pelvis with minimal vascular flow. This likely correlates to the anteverted uterus. IMPRESSION: 1. Moderate bilateral hydronephrosis. 2. Nonspecific pelvic mass, likely representing the uterus or a uterine fibroid. This would be cynhtia r demonstrated with pelvic ultrasound Electronically signed by: Hubert Brown M.D. 08/06/2018 9:04 PM
[2018-08-07] MEDS: ONDANSETRON INJ 2 MG/ML 2 ML VIAL IV PRN (00:13)
[2018-08-07] MEDS: HEPARIN SOD 5,000 UNIT/0.5 ML VIAL SQ SCH ×3 (05:56→21:43)
[2018-08-07 06:25] LABS: Hematocrit (blood only) 34.9 % (37-47); Hemoglobin 11.5 g/dL (12.0-16.0); Mean Corpuscular Volume 82.5 fL (80-100); Mean Platelet Volume 9.3 fL (7.4-10.4); Platelet Count 174 K/uL (130-400); RDW Coefficient of Variation 15.2 % (11.5-14.5); RDW Standard Deviation 44.3 fL (36.4-46.3); Red Blood Count 4.23 M/uL (4.2-5.4); White Blood Count 2.26 K/uL (4.8-10.8)
[2018-08-07 06:34] LABS: Estimated Average Glucose 269 mg/dl
[2018-08-07 07:10] LABS: Albumin Globulin Ratio 0.8 (0.9-2); BUN Creatinine Ratio 15.8 (10-20); Bilirubin,Total 0.6 mg/dl (0.2-1); Calcium 8.7 mg/dl (8.5-10.1); Creatinine Clr Calc Pharmacy 45.8 ml/min; Est GFR (African American) 47.1; Est GFR (Non-African American) 40.7; Globulin 3.9 gm/dl (2.5-4.0); Magnesium 1.7 mg/dl (1.8-2.4); Potassium 4.3 mmol/L (3.5-5.1); Total Protein 6.9 gm/dl (6.4-8.2)
[2018-08-07] MEDS: dexAMETHasone 1 MG TAB PO SCH ×2 (09:10→12:35)
[2018-08-07] MEDS: ANASTROZOLE 1 MG TAB PO SCH (09:12)
[2018-08-07] MEDS: INSULIN ASPART 100 UNITS/ML 3 ML PEN SC SCH ×4 (09:13→21:44)
--- NOTE | 2018-08-07 16:34 | Urology Consultation ---
Date of Consultation August 07, 2018 Assessment & Plan (1) Bilateral hydronephrosis: Bilateral hydronephrosis in the presence of lymph node enlargement d/t metastatic breast cancer. Cr remains WNL. Flank pain has resolved. Voiding spontaneously without bother. UC&S pending. Discussed with patient that we will continue to monitor her kidney function and flank pain. If worsening, may consider ureteral stent placement. Patient is doing well at this time. Thank you for the consult, will continue to follow along with primary service. History of Present Illness Attending Physician: Alexis Tejada History of Present Illness 58YO female with metastatic breast cancer (Managed in [place] by [facility]) and bilateral hydronephrosis. Patient reports worsening L flank pain bringing her to the ER. CT abd/pelvis and renal US completed upon arrival, demonstrating mild/moderate bilateral hydronephrosis and pelvic lymph node enlargement. No ureteral calculi or masses appreciated. A punctate nonobstructive R renal stone is also noted. Her Creatinine remains WNL. Fortunately patient's flank pain resolved with pain medication and she reports feeling well today. Reports that she has never seen a urologist before. She continues to void spontaneously without difficulty. Feels that she empties bladder completely. No hematuria, no dysuria. Denies fever/chills. Denies nausea/vomiting. Allergies Allergy/AdvReac Type Severity Reaction Status Date / Time amoxicillin Allergy Mild RASH Verified 12/08/14 06:41 Home Medications Home Medications Medication Instructions Recorded Confirmed Type Vitamin Supplements 1 dose PO DAILY 08/06/18 08/06/18 History anastrozole [Arimidex] 1 mg PO DAILY 08/06/18 08/06/18 History everolimus (antineoplastic) 5 mg PO DAILY 08/06/18 08/06/18 History [Afinitor] Patient History Medical History Hyperglycemia (Acute) Left flank pain (Acute) Bilateral hydronephrosis (Acute) Metastatic breast cancer (Acute) Hypertension (Acute) Leukopenia (Acute) Breast cancer Metastasis from breast cancer Surgical History History of knee replacement procedure of left knee History of knee replacement procedure of right knee Family History Other Family history non-contributory Social History Communication Ability: Effective Beliefs That Will Affect Care: None Current Living Situation: Spouse and Family Other Information That Helps Us Care for You: No Feels Safe at Home: Yes Safety Concerns: Feels Safe At This Time Smoking Status: Never smoker Hx Alcohol Use: No Hx Substance Use: No Review of Systems Constitutional: no fever and no chills Eyes: no problem reported Ear, Nose, Mouth, Throat: no problem reported Respiratory: no dyspnea Cardiovascular: no chest pain Gastrointestinal: no abdominal pain, no nausea and no vomiting Genitourinary (Female): no dysuria, no difficulty urinating and no hematuria Musculoskeletal: no back pain Integumentary: no problem reported Neurologic: no tingling and no numbness Psychiatric: no problem reported Physical Exam Vital Signs (Past 24 Hours): Last Vital Signs Temp 37.2 C 08/07/18 15:23 Pulse 74 08/07/18 15:23 Resp 14 08/07/18 15:23 BP 144/81 H 08/07/18 15:23 Pulse Ox 93 08/07/18 15:23 Constitutional: WD/WN, vitals as above Neck: normal visual inspection Respiratory: normal respiratory effort; does not use accessory muscles Cardiovascular: Vessels: no JVD Extremities: + edema (Bilateral LE) Gastrointestinal (Abdomen): Percussion/Palpation: abdomen soft; abdomen nontender Psychiatric: A+Ox3, euthymic affect
[2018-08-07] MEDS: PROPRANOLOL HCL 20 MG TAB PO SCH (21:49)
[2018-08-07] MEDS: PATIENT'S HEIGHT AND/OR WEIGHT NEEDED SCH (23:00)
[2018-08-08] MEDS: HEPARIN SOD 5,000 UNIT/0.5 ML VIAL SQ SCH ×3 (05:42→22:07)
[2018-08-08 06:41] LABS: Hematocrit (blood only) 33.7 % (37-47); Hemoglobin 11.2 g/dL (12.0-16.0); Mean Corpuscular Hgb Conc 33.2 g/dL (32-36); Mean Corpuscular Volume 81.4 fL (80-100); Mean Platelet Volume 9.6 fL (7.4-10.4); Platelet Count 196 K/uL (130-400); RDW Standard Deviation 43.7 fL (36.4-46.3); Red Blood Count 4.14 M/uL (4.2-5.4); White Blood Count 5.22 K/uL (4.8-10.8)
[2018-08-08 07:19] LABS: Albumin Level 3.1 gm/dl (3.4-5.0); BUN Creatinine Ratio 17.7 (10-20); Calcium 9.1 mg/dl (8.5-10.1); Creatinine Clr Calc Pharmacy 33.3 ml/min; Est GFR (African American) 31.7; Est GFR (Non-African American) 27.3; Potassium 4.3 mmol/L (3.5-5.1)
[2018-08-08 07:21] LABS: Albumin Globulin Ratio 0.8 (0.9-2); Bilirubin,Total 0.5 mg/dl (0.2-1); Globulin 3.8 gm/dl (2.5-4.0); Total Protein 6.9 gm/dl (6.4-8.2)
[2018-08-08] MEDS: ANASTROZOLE 1 MG TAB PO SCH (08:48)
[2018-08-08] MEDS: INSULIN ASPART 100 UNITS/ML 3 ML PEN SC SCH ×4 (08:49→22:04)
[2018-08-08] MEDS: PROPRANOLOL HCL 20 MG TAB PO SCH ×2 (08:49→20:08)
--- NOTE | 2018-08-08 10:40 | Urology Progress Note ---
Date of Service August 08, 2018 Assessment & Plan (1) Bilateral hydronephrosis: Unfortunately Cr has jumped from 1.4 yesterday to 1.96 this morning. Patient is still feeling well without any pain. Will continue to follow. Will make NPO at midnight in the event that bilateral ureteral stent placement is needed tomorrow. Subjective 58YO female with bilateral hydronephrosis in the presence of lymph node enlargement d/t metastatic breast cancer. Patient reports feeling well today. No flank pain. Urinary pattern not bothersome. No fever/chills. No nausea/vomiting. Review of Systems All systems reviewed & are unremarkable except as noted in HPI & below Physical Exam Vital Signs (Past 24 Hours): Last Vital Signs Temp 36.7 C 08/08/18 07:08 Pulse 63 08/08/18 07:08 Resp 18 08/08/18 07:08 BP 168/98 H 08/08/18 07:08 Pulse Ox 94 08/08/18 07:08 Physical Exam: WN/WD NAD. Resp effort normal. No JVD. Abd soft, nontender. A&O x3, appropriate affect.
--- NOTE | 2018-08-08 16:17 | Hospitalist Progress Note ---
Date of Service August 07, 2018 Assessment & Plan (1) Bilateral hydronephrosis: -Admit to [facility] -CT imaging reviewed, mild hydronephrosis due to lymph node involvement, -U/S of kindey show moderate hydronehrosis. -Patient creatinine is rising, anticipate patient arrived at beginning of her obstruction. Will consult urology. Likely lymph node or mets causing obstruction, doubt calculi. Patient may benefit from either a stent placed or nephrostomy tubes if creatinine is worsening tomorrow.. CANCELLED ONCOLOGY CONSULT. Will continue to monitor BUN and creatinine. -Follow BCx -Pain control with morphine sulfate IV prn and Dilaudid IV if necessary. (2) Metastatic breast cancer: -Originally diagnosed in 2008, metastasis to T9 in 2010. Patient is status post multiple chemotherapy regimens and radiation to the spine. -CT showing degenerative disc at the level of L4-L5, L5-S1, retroperitoneal lymphadenopathy, increased lymphadenopathy around the aorta and iliacs -requesting outside records; will defer to oncologist at [facility] once patient is d ischarged. -Continue Arimidex and Afinitor (3) Hypertension: -Patient reports BP is not normally elevated however she does get anxious when in hospitals or around medical personnel -on day of admissionBP is 202/117, will order IV hydralazine in the interim On08/07 Patient is having signs of hypertensive urgency, her BP improved with BB and CCB. will continue beta sheldon for now as patient is tachycardic. will continue to monitor. (4) Left flank pain: Improved will monitor (5) Hyperglycemia: - Glucose elevaed at 267 on PRP at time of admission - ISS with accuchecks and will check A1C: 11. Pt denies hx of DM or elevated glucose previously. May be caused by cancer treatment. For now will continue on sliding scale. Patient will likely need long acting insulin at discharge. (6) Acute renal failure: Likely post renal failure. Will consult urology. as noted above. (7) Leukopenia: - WBC is 2.75 with abs. neutrophils of 2.0. Pt is not neutropenic. Denies fevers. will recheck DVT ppx: Heparin subq, teds, scds Spent 35 minutes in management of patient. Subjective Patient reports feeling better today.Her pain has decreased today to the point where her left flank pain has resolved. She is ambulating the room today. Her nausea is better as well. Review of Systems Constitutional: No fever, sweats or chills Eyes: No diplopia, no worsening or blurred vision ENT: normal hearing, no trouble swallowing Respiratory: No cough, sputum, dyspnea at rest or on exertion Cardiovascular: No chest pain, tightness or palpitations Abdomen: no pain, nausea, vomiting, diarrhea or constipation Musculoskeletal: No joint pain, calf pain, swelling Neurologic: No weakness, numbness/tingling, or balance problems Psychiatric: No anxiety or depression Skin: + rash over the left forearm, no itch Physical Exam Vital Signs (Past 24 Hours): Last Vital Signs Temp 37.2 C 08/07/18 15: Pulse 74 08/07/18 15:23 Resp 14 08/07/18 15:23 BP 144/81 08/07/18 15: Pulse Ox 93 08/07/18 15:23 Physical Exam: General: awake, alert, no apparent distress, + obese Head: Normocephalic, atraumatic ENT: PERRL, EOMI, no pharyngeal exudate, mucous membranes moist Chest: Clear to auscultation, on room air, no adventitious breath sounds Cardiac: Regular rate and rhythm, no murmur, no JVD, normal peripheral pulses, good capillary refill Abdominal: NABS x 4 quadrants, soft, nontender to palpation, no rebound, guarding or tenderness Extremities: + erythematous rash over the left forearm, peripheral edema of BLE nonpitting, otherwise normal inspection, calfs nontender to palpation Psych: Normal mood and affect Neuro: AAO x 3, strength intact bilaterally and related 5/5, no motor deficits, speech is clear, no peripheral sensory deficits (1) Leukopenia Leukopenia type: other Qualified Code(s): D72.818 - Other decreased white blood cell count (2) Hypertension Hypertension type: unspecified Qualified Code(s): I10 - Essential (primary) hypertension
--- NOTE | 2018-08-08 23:50 | Hospitalist Progress Note ---
Date of Service August 08, 2018 Assessment & Plan (1) Bilateral hydronephrosis: -Admit [facility] -CT imaging reviewed, mild hydronephrosis due to lymph node involvement, -U/S of kidney show moderate hydronehrosis. -Patient has had creatinine rising for past 2 days. D/W Urology, patient will be NPO after midnight for likely stent placement in AM. Will continue to monitor BUN and creatinine. -Pain control with morphine sulfate IV prn and Dilaudid IV if necessary. (2) Metastatic breast cancer: -Originally diagnosed in 2008, metastasis to T9 in 2010. Patient is status post multiple chemotherapy regimens and radiation to the spine. -CT showing degenerative disc at the level of L4-L5, L5-S1, retroperitoneal lymphadenopathy, increased lymphadenopathy around the aorta and iliacs -requesting outside records; will defer to oncologist at [facility] once patient is discharged. -Continue Arimidex and Afinitor (3) Hypertension: -Patient reports BP is not normally elevated however she does get anxious when in hospitals or around medical personnel -on day of admissionBP is 202/117, will order IV hydralazine in the interim On08/08 BP is better controlled. Will continue beta sheldon, May add amlodpine if BP does not improve once pos renal obstruction is relived. (4) Left flank pain: Improved will monitor (5) Hyperglycemia: - Glucose elevaed at 267 on PRP at time of admission - ISS with accuchecks and will check A1C: 11. Pt denies hx of DM or elevated glucose previously. May be caused by cancer treatment. For now will continue on sliding scale. Patient will likely need long acting insulin at discharge. (6) Acute renal failure: Likely post renal failure. as noted above. (7) Leukopenia: WBC has improved to above 5 will recheck DVT ppx: Heparin subq, teds, scds Spent 35 minutes in management of patient. Included discussion with family, consultants and patient. Subjective Patient appears distraught over her lab results. She reports though that her pain has not returned, and has not required IV morphine today. Her is at bedside and is updated. Review of Systems Constitutional: No fever, sweats or chills Eyes: No diplopia, no worsening or blurred vision ENT: normal hearing, no trouble swallowing Respiratory: No cough, sputum, dyspnea at rest or on exertion Cardiovascular: No chest pain, tightness or palpitations Abdomen: no pain, nausea, vomiting, diarrhea or constipation Musculoskeletal: No joint pain, calf pain, swelling Neurologic: No weakness, numbness/tingling, or balance problems Psychiatric: No anxiety or depression Skin: + rash over the left forearm, no itch Physical Exam Vital Signs (Past 24 Hours): Last Vital Signs Temp 36.5 C 08/08/18 23:31 Pulse 65 08/08/18 23:31 Resp 18 08/08/18 23:31 BP 174/105 H 08/08/18 23:31 Pulse Ox 95 08/08/18 23:31 Physical Exam: General: awake, alert, no apparent distress, + obese Head: Normocephalic, atraumatic ENT: PERRL, EOMI, no pharyngeal exudate, mucous membranes moist Chest: Clear to auscultation, on room air, no adventitious breath sounds Cardiac: Regular rate and rhythm, no murmur, no JVD, normal peripheral pulses, good capillary refill Abdominal: NABS x 4 quadrants, soft, nontender to palpation, no rebound, guarding or tenderness Extremities: + erythematous rash over the left forearm, peripheral edema of BLE nonpitting, otherwise normal inspection, calfs nontender to palpation Psych: Normal mood and affect Neuro: AAO x 3, strength intact bilaterally and related 5/5, no motor deficits, speech is clear, no peripheral sensory deficits (1) Hypertension Hypertension type: unspecified Qualified Code(s): I10 - Essential (primary) hypertension (2) Leukopenia Leukopenia type: other Qualified Code(s): D72.818 - Other decreased white blood cell count
[2018-08-09] MEDS: MoRPHine SULFATE 2 MG/ML CARP IV PRN ×4 (01:38→08:04)
[2018-08-09 06:23] LABS: Hematocrit (blood only) 35.4 % (37-47); Hemoglobin 11.9 g/dL (12.0-16.0); Mean Corpuscular Hgb Conc 33.6 g/dL (32-36); Mean Corpuscular Volume 80.8 fL (80-100); Mean Platelet Volume 9.7 fL (7.4-10.4); Platelet Count 199 K/uL (130-400); RDW Coefficient of Variation 15.2 % (11.5-14.5); RDW Standard Deviation 43.7 fL (36.4-46.3); Red Blood Count 4.38 M/uL (4.2-5.4); White Blood Count 6.07 K/uL (4.8-10.8)
[2018-08-09] MEDS: HEPARIN SOD 5,000 UNIT/0.5 ML VIAL SQ SCH ×3 (06:39→21:07)
[2018-08-09 07:01] LABS: BUN Creatinine Ratio 22.9 (10-20); Calcium 9.1 mg/dl (8.5-10.1); Creatinine Clr Calc Pharmacy 35.4 ml/min; Est GFR (African American) 33.9; Est GFR (Non-African American) 29.3
[2018-08-09 07:04] LABS: Albumin Globulin Ratio 0.9 (0.9-2); Bilirubin,Total 0.7 mg/dl (0.2-1); Globulin 3.5 gm/dl (2.5-4.0); Total Protein 6.5 gm/dl (6.4-8.2)
[2018-08-09] MEDS: ANASTROZOLE 1 MG TAB PO SCH (08:04)
[2018-08-09] MEDS: INSULIN ASPART 100 UNITS/ML 3 ML PEN SC SCH ×4 (08:05→21:07)
[2018-08-09] MEDS: PROPRANOLOL HCL 20 MG TAB PO SCH ×2 (08:06→21:06)
[2018-08-09] MEDS ORDERED: MoRPHine SULFATE 2 MG/ML CARP IV PRN (08:27)
[2018-08-09] MEDS: MoRPHine SULFATE 4 MG/ML 1 ML CARP\\VIAL IV PRN ×2 (08:50→11:54)
--- NOTE | 2018-08-09 10:26 | Anesthesiology Consultation ---
Date of Service August 09, 2018 Assessment & Plan Chart Review Chart Review: Acceptable Risk for Surgery and Patient NOT seen in Pre Admission Testing Consults Requested none ASA ASA3E Proposed Anesthesia Anesthesia Type: General Risk / Benefits Reviewed With: PT / POA / Parent / Guardian, Accepts Plan and Informed Consent Obtained NPO Date Last Intake of Fluids: 08/08/18 Time Last Intake of Fluids: 23:59 Date Last Intake of Solids: 08/08/18 Time Last Intake of Solids: 17:00 History Surgery Operation Date: 08/09/18 14:00 Proposed Procedures p Cystoscopy - Braulio Fuller MD s Ureteral Stent Insertion/Removal - Braulio Fuller MD Height/Weight Height: 1.6 m Weight: 92.8 kg Allergies Allergy/AdvReac Type Severity Reaction Status Date / Time amoxicillin Allergy Mild RASH Verified 12/08/14 06:41 Medications Home Medications Medication Instructions Recorded Confirmed Last Taken Vitamin Supplements 1 dose PO DAILY 08/06/18 08/06/18 Unknown anastrozole [Arimidex] 1 mg PO DAILY 08/06/18 08/06/18 08/05/18 everolimus (antineoplastic) 5 mg PO DAILY 08/06/18 08/06/18 07/25/18 [Afinitor] Active Medications Generic Name Dose Route Start Last Admin Trade Name Freq PRN Reason Stop Dose Admin Anastrozole 1 mg 08/06/18 10:30 08/09/18 08:04 Arimidex PO 09/05/18 10:29 Not Given DAILY DEVI Heparin Sodium (Porcine) 5,000 units 08/06/18 15:30 08/09/18 13:48 Heparin Sodium (Porcine) SQ 09/05/18 15:29 Not Given Q8 DEVI Insulin Aspart 0 units 08/06/18 11:30 08/09/18 13:47 Novolog Flexpen SC 09/05/18 11:29 Not Given ACHS DEVI Miscellaneous 1 ea 08/06/18 11:15 08/09/18 08:04 Order Awaiting Action N/A 09/05/18 11:14 Not Given QS DEVI Morphine Sulfate 4 mg 08/09/18 08:28 08/09/18 11:54 Morphine Sulfate IV 08/20/18 10:29 4 mg Q1H PRN Administration Severe Pain Ondansetron HCl 4 mg 08/06/18 10:30 08/07/18 00:13 Zofran IV 09/05/18 10:29 4 mg Q4H PRN Administration Nausea And Vomiting Propranolol HCl 20 mg 08/07/18 21:00 08/09/18 08:06 Inderal PO 09/06/18 20:59 20 mg BID DEVI Administration Beta Trinity Beta Trinity Taken Within 24 Hours: Yes Past Medical History Medical History Hyperglycemia (Acute) Left flank pain (Acute) Bilateral hydronephrosis (Acute) Metastatic breast cancer (Acute) Hypertension (Acute) Leukopenia (Acute) Breast cancer Metastasis from breast cancer Per patient HTN and DM are new issues. She is not currently on any medicine for those. Denies any recent CP, SOB, GERD symptoms, n/v Past Family History Family History Other Family history non-contributory Past Surgical History Surgical History H/O section History of knee replacement procedure of left knee History of knee replacement procedure of right knee S/P mastectomy, bilateral Past Anesthesia History No Hx of Anesthesia Complications and No Family Hx of Anesthesia Complications History of PONV No Motion Sickness Screening History of Motion Sickness: No Social History Smoking Status: Never smoker Do You Dip or Chew Tobacco: No Hx Alcohol Use: No Hx Substance Use: No Exercise / Class Metabolic Activity II 4-5 Yardwork/Stairs/Walk up hill Physical Exam Vital Signs Last Vital Signs Temp 37.6 C H 08/09/18 12:00 Pulse 83 08/09/18 12:00 Resp 18 08/09/18 12:00 BP 189/99 H 08/09/18 12:00 Pulse Ox 95 08/09/18 12:00 Constitutional + obese ENMT Mouth: + small oral opening; no TMJ abnormality and no TMJ clicking Thyromental Distance: < 3.5 Finger Breadths Mallampati Class: III Neck + shortened thyromental distance; neck extension not limited Respiratory Auscultation: lungs clear to auscultation bilaterally Cardiovascular Rate/Rhythm: regular rate and regular rhythm Musculoskeletal Spine: normal cervical ROM and no pain with cervical ROM Psychiatric Orientation: alert and oriented x 3 Testing Laboratory Results 08/09/18 05:34 08/09/18 05:34 PT 9.8 Seconds (9.0-12.0) 08/06/18 06:15 INR 1.0 (0.9-1.1) 08/06/18 06:15 APTT 28.6 Seconds (21.0-31.0) 08/06/18 06:15 Hemoglobin A1c 11.0 % (4.5-5.6) H 08/07/18 06:08 Urine Color Yellow 08/06/18 06:45 Urine Appearance Clear (Clear) 08/06/18 06:45 Urine pH 6.5 (4.5-7.5) 08/06/18 06:45 Ur Specific [place] 1.012 (1.000-1.030) 08/06/18 06:45 Urine Protein 1+ (Negative) H 08/06/18 06:45 Urine Glucose (UA) 3+ (Negative) H 08/06/18 06:45 Urine Ketones Negative (Negative) 08/06/18 06:45 Urine Nitrite Negative (Negative) 08/06/18 06:45 Ur Leukocyte Esterase Negative (Negative) 08/06/18 06:45 Urine WBC (Auto) 1-5 /hpf (0-5) 08/06/18 06:45 Urine RBC (Auto) 0-4 /hpf (0-4) 08/06/18 06:45 U Hyaline Cast (Auto) 1-5 /lpf (0-5) 08/06/18 06:45 U Epithel Cells (Auto) 10-20 /lpf (0-5) H 08/06/18 06:45 Urine Bacteria (Auto) Negative (Negative) 08/06/18 06:45 08/07/18 21:55 Urine Culture - Final Urine,Clean Catch Three types of organisms present, all low counts probable skin concetta. No further identifications or sensitivities to follow. 08/09/18 08/09/18 11:46 07:20 POC Glucose 113 H 119 H
--- NOTE | 2018-08-09 10:30 | Urology Progress Note ---
Date of Service August 09, 2018 Assessment & Plan (1) Bilateral hydronephrosis: B/l hydro in the setting of met breast ca - discussed obs vs stent vs perc - Cr improved slightly today - she prefers b/l stents - pain is her biggest concern - I have explained that I can not be certain her pain is from the hydro - I have also explained that if her disease progresses further, stents may ultimately prove unsuccessful - she and her family are understanding - move forward with surgery today Subjective developed left flank pain again overnight - good UoP - no dysuria or hematuria - no right flank pain Physical Exam Vital Signs (Past 24 Hours): Last Vital Signs Temp 36.4 C L 08/09/18 07:21 Pulse 83 08/09/18 07:21 Resp 20 08/09/18 07:21 BP 167/100 H 08/09/18 07:21 Pulse Ox 95 08/09/18 07:21 Physical Exam: Resting comfortably - NAD AAOx3 no resp distress RRR abd soft, moderate L CVA tenderness no suprapubic tenderness mild edema no rash
[2018-08-09] MEDS ORDERED: CIPROFLOXACIN / D5W 200 MG/100 ML BAG IV SCH (11:00)
[2018-08-09] MEDS ORDERED: LIDOCAINE HCL 2% 2 ML VIAL/AMP(20MG/ML) INFIL ONE ×2 (14:40)
[2018-08-09] MEDS ORDERED: PROPOFOL IV EMULSION 10 MG/ML 20 ML VIAL IV ONE ×2 (14:40)
[2018-08-09] MEDS ORDERED: SODIUM CHLORIDE 0.9% INJ 10 ML VIAL ONE (15:07)
[2018-08-09] MEDS ORDERED: ONDANSETRON INJ 2 MG/ML 2 ML VIAL ONE (15:07)
[2018-08-09] MEDS ORDERED: ATROPINE SULFATE 0.1 MG/ML 10ML SYR IV PRN (15:08)
[2018-08-09] MEDS ORDERED: ONDANSETRON INJ 2 MG/ML 2 ML VIAL IV PRN (15:08)
[2018-08-09] MEDS ORDERED: ePHEDrine sulfate 50 MG/ML AMP IV PRN (15:08)
[2018-08-09] MEDS ORDERED: PHENYLEPHRINE 100MCG/ML 5ML SYR IV PRN (15:08)
[2018-08-09] MEDS ORDERED: PROMETHAZINE HCL 12.5 MG in SODIUM CHLORIDE 0.9% 50 ML IV PRN (15:08)
[2018-08-09] MEDS ORDERED: HYDROmorphone INJ 1 MG/ML SYRINGE IV PRN (15:08)
[2018-08-09] MEDS ORDERED: fentaNYL citrate 100 MCG/2 ML VIAL IV PRN (15:08)
[2018-08-09] MEDS ORDERED: IOTHALAMATE MEGLUMINE II 17.2% 250 ML VIAL ONE (15:09)
[2018-08-09] MEDS ORDERED: MIDAZOLAM HCL 1 MG/ML 2ML VIAL ONE (15:10)
[2018-08-09] MEDS ORDERED: fentaNYL citrate 100 MCG/2 ML VIAL ONE (15:11)
[2018-08-09] MEDS ORDERED: KETAMINE HCL INJ 50 MG/ML 10 ML VIAL ONE (15:11)
[2018-08-09] MEDS ORDERED: LABETALOL HCL IV 5 MG/ML 20ML IV ONE (15:29)
--- NOTE | 2018-08-09 15:45 | Operative Report ---
Post Operative Report Pre & Post Diagnosis Operation Date: 08/09/18 14:00 Pre-Op Diagnosis: Hydronephrosis secondary to metastatic breast cancer Post-Op Diagnosis: Hydronephrosis secondary to metastatic breast cancer Procedure Operation Date: 08/09/18 14:00 Actual Procedures p Cystoscopy, Bilateral Ureteral Stent Insertion(Bilateral) - Braulio Fuller MD Surgeon Rico Fuller MD Guest Attendant none Estimated Blood Loss 0 Findings Consistent with Post-Op Diagnosis Specimens none Description of Procedure Patient was identified in the preoperative holding area, appropriate informed consent reviewed and completed and the patient was transferred to the operative suite. Upon arrival, she received appropriate preoperative antibiotics in the form of ciprofloxacin. Adequate sedation was achieved, she was placed in dorsal lithotomy position where she was sterilely prepped and draped in standard fashion. To begin the case at best a 22 Ivorian cystoscope with 30 degree lens. Inspection of the urethra and bladder revealed no abnormalities. Ureteral orifices were in orthotopic position. There is clear reflux noted from both sides. I cannulated the left ureteral orifice with a sensor wire and a 5 Ivorian open-ended catheter. The wire advanced the kidney without difficulty, and I subsequently advanced a 5 Ivorian open-ended catheter to the presumed area of the kidney. I withdrew the wire and opacified the collecting system confirming my renal positioning. I then placed a 6 Ivorian by 24 cm Percuflex ureteral stent, seeing a good curl in the kidney as well as the bladder. I then turned my attention to the right ureteral orifice. I cannulated this again with a sensor wire and a 5 Ivorian open-ended catheter. The wire advanced the kidney without difficulty. I was able to advance a 5 Ivorian opening catheter without difficulty. I opacified the collecting system to confirm my renal position. I then attempted to place a 6 Ivorian by 24 cm Percuflex ureteral stent, there was some resistance but I was able to guide this into the kidney successfully. Had an upper pole curl. There is also good curl in the bladder. I subsequently decompress the bladder and concluded the case. The patient tolerated the procedure well and was reversed from anesthesia and taken to the recovery area in stable condition. There were no complications. I attest to the content of the Intraoperative Record and any orders documented therein. Any exceptions are noted below.
--- NOTE | 2018-08-09 16:08 | Fluoroscopy Report ---
INTRAOPERATIVE RADIOGRAPHS CLINICAL HISTORY: Bilateral ureteral stent placement. Fluoroscopy time: 40 seconds. FINDINGS: 2 spot fluoroscopic views of the upper abdomen are presented. Correlation is made with angelique l ultrasound dated 08/06/2018. The images show the proximal ends of ureteral stents projecting over th e renal pelvis bilaterally. No calcifications are seen along the course of the stents. Trace residual contrast within the renal collecting systems shows evidence of bilateral hydronephrosis. IMPRESSION: Intraoperative images from bilateral ureteral stent placement as above. Electronically signed by: Guillermo Martinez M.D. 08/09/2018 4:06 PM
[2018-08-10] MEDS: HEPARIN SOD 5,000 UNIT/0.5 ML VIAL SQ SCH ×2 (05:39→13:41)
--- NOTE | 2018-08-10 06:04 | Anesthesiology Progress Note ---
Date of Service August 09, 2018 Anesthesia Post Procedure Vital Signs Vital Signs: Temp Pulse Pulse Resp BP Pulse Ox 08/10/18 03:35 36.7 C 75 18 153/87 H 95 08/09/18 22:57 36.8 C 87 18 163/93 H 96 08/09/18 21:05 88 166/95 H 93 08/09/18 18:55 36.4 C L 99 H 18 162/97 H 93 08/09/18 17:55 36.5 C 101 H 176/91 H 96 08/09/18 17:25 37.1 C 103 H 18 170/88 H 94 08/09/18 16:55 37.7 C H 96 H 18 108/66 92 08/09/18 16:41 37.3 C 93 H 19 179/96 H 94 08/09/18 16:30 37.3 C 93 H 21 181/89 H 94 08/09/18 16:20 90 17 165/104 H 94 08/09/18 16:10 90 23 180/106 H 98 08/09/18 16:00 83 23 175/88 H 98 08/09/18 15:50 38.1 C H 90 23 176/100 H 94 08/09/18 12:00 37.6 C H 83 18 189/99 H 95 08/09/18 07:21 36.4 C L 83 20 167/100 H 95 Pain Intensity Bilateral Back: Pain Intensity: 3 Notes Mental Status: alert / awake / arousable Patient Amnestic to Procedure: Yes Nausea / Vomiting: adequately controlled Pain: adequately controlled Airway Patency, RR, SpO2: stable & adequate BP & HR: stable & adequate Hydration State: stable & adequate Anesthetic Complications: no major complications apparent Notes: BP improved after IV hydralazine. Pt doing well. VSS.
[2018-08-10] MEDS: MoRPHine SULFATE 4 MG/ML 1 ML CARP\\VIAL IV PRN (08:46)
[2018-08-10] MEDS: ANASTROZOLE 1 MG TAB PO SCH (08:47)
[2018-08-10] MEDS: INSULIN ASPART 100 UNITS/ML 3 ML PEN SC SCH ×2 (08:47→13:41)
[2018-08-10] MEDS: PROPRANOLOL HCL 20 MG TAB PO SCH (08:48)
--- NOTE | 2018-08-10 09:19 | Urology Progress Note ---
Date of Service August 10, 2018 Assessment & Plan (1) Bilateral hydronephrosis: Met Breast Ca; b/l hydro - tolerating stents well thus far - no labs yet this AM - subjectively improved - if improving renal function, d/c home today seems reasonable Subjective left flank pain has resolved after b/l stent placement - some mild dysuria and hematuria, but very tolerable - anxious to go home Physical Exam Vital Signs (Past 24 Hours): Last Vital Signs Temp 36.8 C 08/10/18 08:00 Pulse 76 08/10/18 08:00 Resp 18 08/10/18 08:00 BP 156/87 H 08/10/18 08:00 Pulse Ox 95 08/10/18 03:35 Physical Exam: AFVSS NAD AAOx3 no resp distress rrr abd soft, no suprapubic or CVA tenderness
[2018-08-10 11:33] LABS: Basophils # (auto) 0.01 K/uL (0-0.2); Basophils % (auto) 0.1 %; Hematocrit (blood only) 35.4 % (37-47); Immature Granulocytes # (auto) 0.23 K/uL (0.00-0.02); Immature Granulocytes % (auto) 2.5 %; Lymphocytes # (auto) 0.68 K/uL (1.2-3.4); Lymphocytes % (auto) 7.3 %; Mean Corpuscular Hgb Conc 33.9 g/dL (32-36); Mean Corpuscular Volume 81.6 fL (80-100); Mean Platelet Volume 9.3 fL (7.4-10.4); Monocytes # (auto) 0.85 K/uL (0.11-0.59); Monocytes % (auto) 9.1 %; Neutrophils # (auto) 7.59 K/uL (1.4-6.5); Platelet Count 237 K/uL (130-400); RDW Coefficient of Variation 15.3 % (11.5-14.5); RDW Standard Deviation 44.6 fL (36.4-46.3); Red Blood Count 4.34 M/uL (4.2-5.4); White Blood Count 9.36 K/uL (4.8-10.8)
[2018-08-10 11:51] LABS: BUN Creatinine Ratio 25.1 (10-20); Calcium 8.9 mg/dl (8.5-10.1); Creatinine Clr Calc Pharmacy 42.6 ml/min; Est GFR (African American) 42.4; Est GFR (Non-African American) 36.6; Potassium 3.9 mmol/L (3.5-5.1)
--- NOTE | 2018-08-10 14:07 | Hospitalist Progress Note ---
Date of Service August 09, 2018 Assessment & Plan (1) Bilateral hydronephrosis: -Admit to [facility] - [place] -CT imaging reviewed, mild hydronephrosis due to lymph node involvement, -U/S of kidney show moderate hydronehrosis. -Patient creatinine is mildly iproved today. D/W Urology, patient is NPO for likely stent placement today Will continue to monitor BUN and creatinine. -Pain control with morphine sulfate IV prn and Dilaudid IV if necessary. (2) Metastatic breast cancer: -Originally diagnosed in 2008, metastasis to T9 in 2010. Patient is status post multiple chemotherapy regimens and radiation to the spine. -CT showing degenerative disc at the level of L4-L5, L5-S1, retroperitoneal lymphadenopathy, increased lymphadenopathy around the aorta and iliacs -requesting outside records; will defer to oncologist at [facility] once patient is discharged. -Continue Arimidex and Afinitor (3) Hypertension: -Patient reports BP is not normally elevated however she does get anxious when in hospitals or around medical personnel -on day of admissionBP is 202/117, will order IV hydralazine in the interim On 08/09 BP is better controlled. Will continue beta sheldon, May add amlodpine if BP does not improve once pos renal obstruction is relived. (4) Left flank pain: Improved will monitor (5) Hyperglycemia: - Glucose elevaed at 267 on PRP at time of admission - ISS with accuchecks and will check A1C: 11. Pt denies hx of DM or elevated glucose previously. May be caused by cancer treatment. For now will continue on sliding scale. Patient will likely need long acting insulin at discharge. (6) Acute renal failure: Likely post renal failure. as noted above. (7) Leukopenia: WBC has improved to above 6 will recheck DVT ppx: Heparin subq, teds, scds Spent 25 minutes in management of patient. Included discussion with family, consultants and patient. Subjective Patient ais in better spirits today. She is awaiting the urologist for the procedure. She has no new complaints today. Her pain is better. Review of Systems Constitutional: No fever, sweats or chills Eyes: No diplopia, no worsening or blurred vision ENT: normal hearing, no trouble swallowing Respiratory: No cough, sputum, dyspnea at rest or on exertion Cardiovascular: No chest pain, tightness or palpitations Abdomen: no pain, nausea, vomiting, diarrhea or constipation Musculoskeletal: No joint pain, calf pain, swelling Neurologic: No weakness, numbness/tingling, or balance problems Psychiatric: No anxiety or depression Skin: + rash over the left forearm, no itch Physical Exam Vital Signs (Past 24 Hours): Last Vital Signs Temp 36.4 C 08/09/18 07:21 Pulse 83 08/09/18 07:21 Resp 20 08/09/18 07:21 BP 167/100 08/09/18 07:21 Pulse Ox 95 08/09/18 07:21 Physical Exam: General: awake, alert, no apparent distress, + obese Head: Normocephalic, atraumatic ENT: PERRL, EOMI, no pharyngeal exudate, mucous membranes moist Chest: Clear to auscultation, on room air, no adventitious breath sounds Cardiac: Regular rate and rhythm, no murmur, no JVD, normal peripheral pulses, good capillary refill Abdominal: NABS x 4 quadrants, soft, nontender to palpation, no rebound, guarding or tenderness Extremities: + erythematous rash over the left forearm, peripheral edema of BLE nonpitting, otherwise normal inspection, calfs nontender to palpation Psych: Normal mood and affect Neuro: AAO x 3, strength intact bilaterally and related 5/5, no motor deficits, speech is clear, no peripheral sensory deficits (1) Hypertension Hypertension type: unspecified Qualified Code(s): I10 - Essential (primary) hypertension (2) Leukopenia Leukopenia type: other Qualified Code(s): D72.818 - Other decreased white blood cell count
--- NOTE | 2018-08-13 11:49 | Discharge Summary ---
Date of Service August 10, 2018 Admission HPI Per Admitting Provider This is a 58-year-old female with past medical history of metastatic breast cancer originally diagnosed in 2000-01-27 spine, follows with oncology in [place], currently on Afinitor. She presents today with increased left-sided flank pain which occurred in the middle the night. The patient was unable to sleep through this. She denies radiation of the pain to any other location. Upon presentation to the ER the patient's blood pressure is elevated 202/117 her glucose is 267, elevated liver functions, and has bilateral mild hydronephrosis on CT imaging. Patient reports pain started around 11 PM last night and that she vomited once due to its intensity. She denies any abdominal pain, nausea, bowel changes, urinary changes, fever, sweats or chills. She has been in her normal state of health until yesterday. Patient notes that her pain is aggravated when taking deep breaths but that his it has been significantly improved status post Dilaudid IV 2 mg total. She has been doing more physical activity recently due to her having a surgery on his right lower leg. Principal Diagnosis bilateral hydronephrosis Discharge Exam General: awake, alert, no apparent distress, + obese Head: Normocephalic, atraumatic ENT: PERRL, EOMI, no pharyngeal exudate, mucous membranes moist Chest: Clear to auscultation, on room air, no adventitious breath sounds Cardiac: Regular rate and rhythm, no murmur, no JVD, normal peripheral pulses, good capillary refill Abdominal: NABS x 4 quadrants, soft, nontender to palpation, no rebound, guarding or tenderness Extremities: + erythematous rash over the left forearm, peripheral edema of BLE nonpitting, otherwise normal inspection, calfs nontender to palpation Psych: Normal mood and affect Neuro: AAO x 3, strength intact bilaterally and related 5/5, no motor deficits, speech is clear, no peripheral sensory deficits Discharge Data Allergies Allergy/AdvReac Type Severity Reaction Status Date / Time amoxicillin Allergy Mild RASH Verified 08/11/18 19:26 Consultations 08/06/18 10:30 Consult Case Management - Discharge Planning Routine Consult Health Information Management Stat 08/06/18 17:41 Consult Urology Routine 08/10/18 14:25 Consult BONNIE upper cutter out Routine Procedures Performed Operation Date: 08/09/18 14:00 Actual Procedures p Cystoscopy, Bilateral Ureteral Stent Insertion(Bilateral) - Braulio Fuller MD Ordered Studies 08/06/18 06:14 CT lumbar spine wo con Stat CT pelvis wo con Stat 08/06/18 17:37 US renal/blad retro comp Routine 08/09/18 10:02 FL retrograde includes kub Routine Hospital Course (1) Bilateral hydronephrosis: -Admit to [facility] -CT imaging reviewed, mild hydronephrosis due to lymph node involvement, -U/S of kidney show moderate hydronehrosis. -Patient creatinine is mildly iproved today. D/W Urology, patient can be discharged if creatinine improves after stent placement. Will continue to monitor BUN and creatinine. -Pain control with morphine sulfate IV prn and Dilaudid IV if necessary. On day of discharge, creatinine was improving. Patient was not in any distress. Blood pressure was better controlled. Will discharge on beta sheldon to help with BP. May require higher dose, butwill defer to PCP. (2) Metastatic breast cancer: -Originally diagnosed in 2008, metastasis to T9 in 2010. Patient is status post multiple chemotherapy regimens and radiation to the spine. -CT showing degenerative disc at the level of L4-L5, L5-S1, retroperitoneal lymphadenopathy, increased lymphadenopathy around the aorta and iliacs -requesting outside records; will defer to oncologist at [facility] once patient is discharged. -Continue Arimidex and Afinitor (3) Hypertension: -Patient reports BP is not normally elevated however she does get anxious when in hospitals or around medical personnel -on day of admissionBP is 202/117, will order IV hydralazine in the interim On 08/09 BP is better controlled. Will continue beta sheldon, May add amlodpine if BP does not improve once pos renal obstruction is relived. On 08/10, will discharge on beta sheldon (4) Left flank pain: Improved will monitor (5) Hyperglycemia: - Glucose elevaed at 267 on PRP at time of admission - ISS with accuchecks and will check A1C: 11. Pt denies hx of DM or elevated glucose previously. May be caused by cancer treatment. For now will continue on sliding scale. Patient will likely need long acting insulin at discharge. On last 24 hours, patient did not require signifcant insulin. Will defer. (6) Acute renal failure: Likely post renal failure. as noted above. (7) Leukopenia: WBC has improved to above 6 Total Time Total Time Spent Total Time Spent (In Minutes): 31 Total Time Includes: Examination of the Patient, Discharge Planning and Medication Reconciliation Discharge Plan Discharge Items Patient Disposition: Home - Self-Care Reason For Visit: LEFT FLANK PAIN Discharge Diagnosis: Bilateral ureteral obstruction Discharge Goals: Decrease discomfort Activity: Resume your previous activity Non-emergency contact: Primary Care Provider Call non-emergency contact if: you have any medication questions Follow-up/Referrals: PCP,NO [Physician] - Diet: Heart Healthy Addtl Provider Instructions: Followup with PCP and Oncologist within 1-2 weeks F/[facility] Urology within 1 month. Recheck BMP in 1 week fasting Prescriptions: New propranolol 20 mg Tablet 20 mg PO BID Qty: 60 RF: 0 potassium chloride 10 mEq capsule, extended release 10 meq PO DAILY Qty: 10 RF: 0 Stand-Alone Forms: [employer]/Other Patient Handouts: Propranolol Hydrochloride Oral tablet, Stents Ureteral, Diabetes Manage A1C Test Discharge Orders: Discharge Order (Routine); Ordered 08/10/18 Ordered By: Alexis Tejada Admission Data Admit Date/Time: 08/06/18 09:01 Attending Provider: Alexis Tejada Admit Provider: Alexis Tejada Primary Care Provider: Allegra Esteban Other Providers: Tay Traore II Service: Medical Other Interventions: Discharge Summary Assessment (RN) Last Done: 08/10/18 14:45 DC Date/Time DO NOT enter until pt leaves facility: 08/10/18 16:24
--- NOTE | 2018-09-02 15:24 | Emergency Department Note ---
ED Visit Note I have personally spent greater than 30 minutes of critical care time in the direct management of this patient. This includes bedside care, interpretation of diagnostic studies, and testing, discussion with consultants, patient, and family members, and other required patient management activities. This 30 minutes is in excess of all separately billable procedures. . : Hypertension Qualifiers: Hypertension type: unspecified Qualified Code(s): I10 - Essential (primary) hypertension Leukopenia Qualifiers: Leukopenia type: other Qualified Code(s): D72.818 - Other decreased white blood cell count
== END 2018-08-10 16:24 | disposition home or self-care (01) | DRG 660 ==
LOC: ED 05:54 → 4E 09:01
DX: C79.51 Secondary malignant neoplasm of bone; R73.9 Hyperglycemia, unspecified; I10 Essential (primary) hypertension; N17.9 Acute kidney failure, unspecified; Z79.899 Other long term (current) drug therapy; R10.9 Unspecified abdominal pain; Z92.3 Personal history of irradiation; N13.39 Other hydronephrosis; R59.0 Localized enlarged lymph nodes; C50.919 Malignant neoplasm of unspecified site of unspecified female breast

== ENCOUNTER 2018-08-11 18:13 | Inpatient (IN) ==
[2018-08-11] MEDS ORDERED: ONDANSETRON INJ 2 MG/ML 2 ML VIAL IV STA (18:28)
[2018-08-11] MEDS ORDERED: SODIUM CHLORIDE 0.9% 1000ML 1,000 ML IV ONE (18:28)
[2018-08-11] MEDS ORDERED: ACETAMINOPHEN 1,000 MG/100 ML VIAL IV ONE (18:31)
[2018-08-11] MEDS ORDERED: SODIUM CHLORIDE 0.9% 1000ML 2,000 ML IV ONE (18:38)
--- NOTE | 2018-08-11 18:44 | Emergency Department Note ---
History of Present Illness General Chief complaint: Dehydration Stated complaint: DEHYDRATION,DIARRHEA,HACKETT,NAUSEA Time Seen by Provider: 08/11/18 18:19 History of Present Illness Maximum Pain Intensity: 8 58-year-old female who presents the emergency department for evaluation of dehydration, nausea, diarrhea and headache. The patient was just discharged from our facility yesterday after having 2 ureteral stents placed for bilateral hydronephrosis secondary to lymph node obstruction. Patient has a history of metastatic breast cancer. The patient reports that she has had good urinary output, but has not had any appetite. She admits that she has not been able to keep hydrated because of nausea. Her reports that she was provided a prescription for propanolol 20 mg to be taken as needed for headache. She was given propanolol at 3 PM. The patient has not noticed any blood in her stool, but has had persistent watery stools. She denies any other recent sick contacts. She rates her overall discomfort an 8 out of 10. Home Medications Home Medications Medication Instructions Recorded Confirmed Type potassium chloride 10 meq PO DAILY #10 cap 08/10/18 08/11/18 Rx propranolol 20 mg PO BID #60 tab 08/10/18 08/11/18 Rx Allergies Allergy/AdvReac Type Severity Reaction Status Date / Time amoxicillin Allergy Mild RASH Verified 08/11/18 19:26 Past Med/Surg History Medical History Hyperglycemia (Acute) Left flank pain (Acute) Bilateral hydronephrosis (Acute) Metastatic breast cancer (Acute) Hypertension (Acute) Leukopenia (Acute) Breast cancer Metastasis from breast cancer Surgical History H/O section History of knee replacement procedure of left knee History of knee replacement procedure of right knee S/P mastectomy, bilateral Family History Other Family history non-contributory Social History Preferred Language: Niuean Beliefs That Will Affect Care: None Current Living Situation: Spouse and Family Feels Safe at Home: Yes Smoking Status: Never smoker Hx Alcohol Use: No Hx Substance Use: No Review of Systems HEENT: Denies dizziness, visual problems, hearing loss, tinnitus. Denies difficulty swallowing or oral lesions. PULMONARY: Denies cough, shortness of breath, sputum production or hemoptysis. CARDIOVASCULAR: Denies chest pain, palpitations, dyspnea on exertion, orthopnea or peripheral edema. GASTROINTESTINAL: See HPI. GENITOURINARY: See HPI. NEUROLOGIC: Denies history of epilepsy, CVA, TIA or chronic headaches. MUSCULOSKELETAL: Denies history of joint tenderness/swelling. SKIN: Denies rashes or lesions. PSYCHIATRIC: Denies history of depression or mental illness. ENDOCRINE: Denies history of diabetes or thyroid disorders. Physical Exam Vital Signs Vital Signs - 24 hr 08/11/18 18:16 08/11/18 20:15 08/11/18 21:20 Temperature 36.7 C Temperature Source Oral Sepsis Recent Fever Within 48 Hours No Sepsis New/Unexplained Change in Mental Status No Sepsis Action Taken by Nursing No Action Required Pulse Rate 89 Pulse Rate [Right] 90 88 Pulse Rhythm [Right] Regular Regular Pulse Strength [Right] Normal Normal Respiratory Rate 20 17 18 Respiratory Effort / Characteristics Non-Labored Spontaneous Non-Labored Spontaneous Respiratory Depth Normal Normal Respiratory Pattern Regular Regular Blood Pressure 94/65 L Blood Pressure [Right Arm] 98/66 L 82/58 L Blood Pressure Mean 74 Blood Pressure Mean [Right Arm] 76 66 Blood Pressure Position [Right Arm] Lying Lying Pulse Oximetry 97 98 Oxygen Delivery Method Room Air Room Air CONSTITUTIONAL: Healthy and well nourished. Alert and oriented X 3. Patient does not appear toxic. HEENT: Normocephalic, atraumatic. Pupils equal, round and reactive. No scleral icterus or conjunctival injection/pallor. Ears and nares are clear. Mucous membranes are extremely dry. NECK: Full active range of motion without discomfort. No JVD or carotid bruits. LYMPHATICS: No cervical chain adenopathy. RESPIRATORY: Clear to auscultation bilaterally with no wheezing, crackles, rhonchi or stridor. CARDIOVASCULAR: Regular rate and rhythm with no murmurs, rubs or gallops. GASTROINTESTINAL: Bowel sounds present in all quadrants. Patient has minimal and nonfocal tenderness to palpation of the abdomen. MUSCULOSKELETAL: Full range of motion of all joints without discomfort. INTEGUMENTARY: No rash or other significant dermatologic conditions noted. HEMATOLOGIC: No ecchymosis or petechiae. PSYCHIATRIC: Positive affect. NEUROLOGIC: Cranial nerves II-XII grossly intact. No focal neurologic deficits noted. Course Patient history and physical exam were performed. Nurse's notes were reviewed. Vital signs were reviewed, showing a blood pressure of 94/65. Patient is afebrile and not tachycardic. IV access was established, and labs were drawn. The patient was hydrated with 2 L of normal saline. Review of labs shows a white count of over 20,000, and creatinine of 3.43. Sodium is also low at 128. Retroperitoneal ultrasound continues to show bilateral hydronephrosis. On reevaluation after the patient returned from ultrasound, she did request something for pain. She was administered Dilaudid 0.5 mg IVP. The case was further discussed with Dr. Betancur, ED attending physician, who recommended hospitalist consultation for admission. The case was further discussed with Dr. Schaeffer, [facility] hospitalist. I also spoke with Dr. Traore, who is on-call for [facility], who suggested scanning the bladder and Brown catheter management. He agreed with observation for improvement of renal function. Please see hospitalist dictations for further treatment and final disposition. Administered Medications Discontinued Medications Hydromorphone HCl (Dilaudid) 0.5 mg IV NOW STA Stop: 08/11/18 21:04 Last Admin: 08/11/18 21:14 Dose: 0.5 mg Documented by: [id number] Acetaminophen (Ofirmev) 1,000 mg in 100 mls @ 400 mls/hr IV ONE ONE Stop: 08/11/18 18:45 Last Infusion: 08/11/18 19:48 Dose: 0 mls/hr Documented by: [id number] Admin: 08/11/18 19:33 Dose: 400 mls/hr Documented by: [id number] Sodium Chloride (Nss 1000ml) 1,000 mls @ 999 mls/hr IV .Q1H1M ONE Stop: 08/11/18 19:28 Last Admin: 08/11/18 19:34 Dose: Not Given Documented by: [id number] Sodium Chloride (Nss 1000ml) 2,000 mls @ 999 mls/hr IV .Q2H1M ONE Stop: 08/11/18 20:38 Last Admin: 08/11/18 19:34 Dose: 999 mls/hr Documented by: [id number] Ondansetron HCl (Zofran) 4 mg IV NOW STA Stop: 08/11/18 18:29 Last Admin: 08/11/18 19:33 Dose: 4 mg Documented by: [id number] Medical Decision Making Medical Records Attestation: I reviewed the patient's medical records. Home Medications Current Medication List: was personally reviewed by me Laboratory Data Attestation: I reviewed the patient's lab results. Result diagrams: 08/11/18 19:18 08/11/18 19:18 Lab Results 08/11/18 08/11/18 08/11/18 Range/Units 18:30 19:18 19:18 WBC 20.81 H (4.8-10.8) K/uL RBC 4.12 L (4.2-5.4) M/uL Hgb 11.4 L (12.0-16.0) g/dL Hct 32.8 L (37-47) % MCV 79.6 L (80-100) fL MCH 27.7 (25-34) pg MCHC 34.8 (32-36) g/dL RDW Std Deviation 43.9 (36.4-46.3) fL RDW Coeff of Jazmyne 15.1 H (11.5-14.5) % Plt Count 207 (130-400) K/uL MPV 9.7 (7.4-10.4) fL Neutrophils % (Manual) 87.9 % Lymphocytes % (Manual) 0.9 % Monocytes % (Manual) 3.4 % Metamyelocytes % (Man) 5.2 % Myelocytes % (Man) 2.6 % Neutrophils # (Manual) 18.29 H (1.4-6.5) K/uL Total Absolute Neuts 18.29 H (1.4-6.5) K/uL Lymphocytes # (Manual) 0.19 L (1.2-3.4) K/uL Total Abs Lymphocytes 0.19 L (1.2-3.4) K/uL Monocytes # (Manual) 0.71 H (0.11-0.59) K/uL Metamyelocytes # (Man) 1.08 H (0-0) K/uL Myelocytes # (Manual) 0.54 H (0-0) K/uL Hyposegmented Neuts 1+ Polychromasia 1+ Ovalocytes 1+ Echinocytes 2+ Sodium 128 L (136-145) mmol/L Potassium 3.6 (3.5-5.1) mmol/L Chloride 95 L (98-107) mmol/L Carbon Dioxide 21 (21-32) mmol/L Anion Gap 11.0 (3-11) BUN 55 H (7-18) mg/dl Creatinine 3.43 H D (0.6-1.2) mg/dl Est Cr Clr Drug Dosing Not Reportable Est GFR ( Amer) 16.1 Est GFR (Non-Af Amer) 13.9 BUN/Creatinine Ratio 15.9 (10-20) Glucose 136 H (70-99) mg/dl Calcium 8.8 (8.5-10.1) mg/dl Total Bilirubin 2.5 H (0.2-1) mg/dl AST 37 (15-37) U/L ALT 40 (12-78) U/L Alkaline Phosphatase 148 H (45-117) U/L C-Reactive Protein 26.90 H (0-0.29) mg/dl Total Protein 6.4 (6.4-8.2) gm/dl Albumin 2.5 L (3.4-5.0) gm/dl Globulin 3.9 (2.5-4.0) gm/dl Albumin/Globulin Ratio 0.6 L (0.9-2) Lipase 66 L (73-393) U/L Urine Color Yaneli Urine Appearance Slightly Cloudy (Clear) Urine pH 7.5 (4.5-7.5) Ur Specific [place] <= 1.005 (1.000-1.030) Urine Protein 2+ H (Negative) Urine Glucose (UA) Negative (Negative) Urine Ketones Negative (Negative) Urine Blood 3+ H (Negative) Urine Nitrite Negative (Negative) Urine Bilirubin Negative (Negative) Urine Urobilinogen Negative (Negative) Ur Leukocyte Esterase 2+ H (Negative) Urine RBC >30 H (0-4) /hpf Urine WBC 5-10 H (0-5) /hpf Ur Epithelial Cells >30 H (0-5) /lpf Urine Bacteria 1+ H (Negative) Hyaline Casts 0-5 (0-5) /lpf Imaging Data My Impression: Renal ultrasound shows persistent hydronephrosis, comparable to her prior CT imaging last week. Radiologist report was reviewed. Radiologist's Impression: US renal/blad retro comp HISTORY: 58 years-old Female Bilateral ureteral stents, N/V acute nausea and vomiting with bilateral ureteral stents COMPARISON: CT pelvis 08/06/2018 TECHNIQUE: Multiple real-time sonographic images of the kidneys and urinary bladder were obtained assessing grayscale appearance and color flow FINDINGS: Right kidney measures 10.7 cm in length and demonstrates moderate hydronephrosis. No right-sided renal calculi or suspicious mass lesions. Right ureteral stent is noted with proximal portion about the right renal pelvis. Mild left-sided hydronephrosis is noted with proximal portion of the left ureteral stent about a superior pole calyx. Left kidney measures 11.6 cm in length and demonstrates no shadowing calculi or suspicious mass lesions. Unit bladder is not diagnostically visualized, likely decompressed. IMPRESSION: 1. Moderate right and mild to moderate left hydronephrosis with bilateral ur eteral stents. 2. Nonvisualization of the urinary bladder. Blood Pressure Blood Pressure Findings: Low blood pressure MDM Narrative Patient presents emergency department with complaint of nausea, diarrhea and persistent bilateral flank pain with headache. I suspect the condition was likely precipitated by dehydration as she has not been able to tolerate oral intake, in addition having diarrhea which has further dehydrated the patient. The patient is currently afebrile. She is hypotensive, and certainly urosepsis was also considered. The hospitalist service indicated that they would perform additional antibiotic orders. Impression & Plan Acute renal failure, Bilateral hydronephrosis, Acute dehydration, Acute bilateral obstructive uropathy Discharge Plan Visit Data Chief Complaint: Dehydration Stated Complaint: DEHYDRATION,DIARRHEA,HACKETT,NAUSEA ED Provider: Remi Betancur ED Midlevel Provider: Joseph Luciano Discharge Problem: Acute renal failure, Bilateral hydronephrosis, Acute dehydration, Acute bilateral obstructive uropathy Forms Stand Alone Forms: [facility] Prescriptions Prescriptions: No Action propranolol 20 mg Tablet 20 mg PO BID Qty: 60 RF: 0 potassium chloride 10 mEq capsule, extended release 10 meq PO DAILY Qty: 10 RF: 0
[2018-08-11 19:18] LABS: Appearance Urine Slightly Cloudy (Clear); Bilirubin Urine Negative (Negative); Blood Urine 3+ (Negative); Color Urine Amber; Glucose Urine UA Negative (Negative); Ketones Urine Negative (Negative); Leukocyte Esterase Urine 2+ (Negative); Nitrite Urine Negative (Negative); Specific Gravity Urine <= 1.005 (1.000-1.030); Urobilinogen Urine Negative (Negative); pH Urine 7.5 (4.5-7.5)
[2018-08-11 19:23] LABS: Protein Urine 2+ (Negative)
[2018-08-11 19:25] LABS: Epithelial Cell Urine >30 /lpf (0-5); RBC Urine >30 /hpf (0-4)
[2018-08-11 19:26] LABS: Bacteria Urine 1+ (Negative)
[2018-08-11 19:27] LABS: Hyaline Casts Urine 0-5 /lpf (0-5)
[2018-08-11 19:57] LABS: Hematocrit (blood only) 32.8 % (37-47); Hemoglobin 11.4 g/dL (12.0-16.0); Mean Corpuscular Hgb Conc 34.8 g/dL (32-36); Mean Corpuscular Volume 79.6 fL (80-100); Mean Platelet Volume 9.7 fL (7.4-10.4); Platelet Count 207 K/uL (130-400); RDW Coefficient of Variation 15.1 % (11.5-14.5); RDW Standard Deviation 43.9 fL (36.4-46.3); Red Blood Count 4.12 M/uL (4.2-5.4); White Blood Count 20.81 K/uL (4.8-10.8)
[2018-08-11 19:59] LABS: ALC (manual) 0.19 K/uL (1.2-3.4); Echinocytes 2+; Lymphocytes # (manual) 0.19 K/uL (1.2-3.4); Lymphocytes % (manual) 0.9 %; Metamyelocytes # (manual) 1.08 K/uL (0-0); Metamyelocytes % (manual) 5.2 %; Monocytes # (manual) 0.71 K/uL (0.11-0.59); Monocytes % (manual) 3.4 %; Myelocytes # (manual) 0.54 K/uL (0-0); Myelocytes % (manual) 2.6 %; Neutrophils % (manual) 87.9 %; Ovalocytes 1+; Polychromasia 1+
[2018-08-11 20:05] LABS: Alanine Aminotransferase 40 U/L (12-78); Albumin Globulin Ratio 0.6 (0.9-2); Albumin Level 2.5 gm/dl (3.4-5.0); Alkaline Phosphatase 148 U/L (45-117); Aspartate Aminotransferase 37 U/L (15-37); BUN Creatinine Ratio 15.9 (10-20); Blood Urea Nitrogen 55 mg/dl (7-18); Calcium 8.8 mg/dl (8.5-10.1); Carbon Dioxide 21 mmol/L (21-32); Chloride 95 mmol/L (98-107); Est GFR (African American) 16.1; Est GFR (Non-African American) 13.9; Globulin 3.9 gm/dl (2.5-4.0); Glucose 136 mg/dl (70-99); Potassium 3.6 mmol/L (3.5-5.1); Sodium 128 mmol/L (136-145); Total Protein 6.4 gm/dl (6.4-8.2)
[2018-08-11 20:36] LABS: Bilirubin,Total 2.5 mg/dl (0.2-1)
--- NOTE | 2018-08-11 20:43 | Ultrasound Report ---
US renal/blad retro comp HISTORY: 58 years-old Female Bilateral ureteral stents, N/V acute nausea and vomiting with bilateral ureteral stents COMPARISON: CT pelvis 08/06/2018 TECHNIQUE: Multiple real-time sonographic images of the kidneys and urinary bladder were obtained ass essing grayscale appearance and color flow FINDINGS: Right kidney measures 10.7 cm in length and demonstrates moderate hydronephrosis. No right-sided angelique l calculi or suspicious mass lesions. Right ureteral stent is noted with proximal portion about the r ight renal pelvis. Mild left-sided hydronephrosis is noted with proximal portion of the left ureteral stent about a sup erior pole calyx. Left kidney measures 11.6 cm in length and demonstrates no shadowing calculi or ann picious mass lesions. Unit bladder is not diagnostically visualized, likely decompressed. IMPRESSION: 1. Moderate right and mild to moderate left hydronephrosis with bilateral ureteral stents. 2. Nonvisualization of the urinary bladder. The above report was generated using voice recognition software. It may contain grammatical, syntax o r spelling errors. Electronically signed by: Daniele Flores M.D. 08/11/2018 8:41 PM
[2018-08-11] MEDS ORDERED: HYDROmorphone INJ 0.5 MG/0.5 ML SYR IV STA (21:03)
[2018-08-11] MEDS ORDERED: SODIUM CHLORIDE 0.9% 1000ML 500 ML IV ONE (21:42)
--- NOTE | 2018-08-11 21:51 | History & Physical Report ---
Date of Service August 11, 2018 Assessment & Plan (1) Hypovolemic shock: 58F s/p bilateral ureteral stents placed on 08/09/18 for bilateral hydronephrosis in presence of lymph node enlargement due to metastatic breast cancer. Here for dehydration, diarrhea, nausea and found to be hypotensive, uremic. 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 Continue Normasol at 125ml/hr. -kay cath ordered to monitor output -stool studies including c. diff (no BM's since she's been in ED) -Sepsis -- begin empiric antibiotics for pyelonephritis with Cefepime -pain: conservative with opioids in setting of hypotension. 0.25mg dilaudid q4 prn -nausea: zofran prn -consult urology FEN/GI: npo, 3.5L bolus in ED, normosol at 125 ml/hr. DVT ppx: SCDs CODE STATUS: FULL DISPO: ICU for volume repletion, monitoring (2) Acute dehydration: as above (3) Acute bilateral obstructive uropathy: as above (4) Acute renal failure: as above (5) Metastatic breast cancer: (6) Migraine: appear to be chronic -hold home propranolol in setting of hypovolemic shock History of Present Illness Chief Complaint: Septic shock, hypovolemic shock Primary Care Provider: Allegra Esteban DO This is a 58-year-old [facility] female with past medical history of metastatic breast cancer originally diagnosed years ago who follows with oncology in [place] and is currently on Afinitor. She was recently admitted from 08/06/18 to 08/10/18 (yesterday) for right-sided flank pain and was found to have bilateral hydroneph rosis due to lymphadenopathy secondary to metastatic breast cancer. Bilateral ureteral stents were placed 08/09/2018, patient's kidney function was trending back to normal. Her is at the bedside and helps provide a history. He states that they left the hospital, and returned home. She began having a headache and complained of one loose bowel movement. He gave her 600 mg of ibuprofen. The next day she woke up with a headache that was persistent, and he got her Excedrin for migraine. She then began having profuse stools. She had nausea and some vomiting. She was unable to keep p.o. fluids. He brought her in for concern of dehydration. In the ED she was found to be hypotensive and she was given fluid boluses. Renal ultrasound showed bilateral stents in place. Labs were remarkable for an elevated white count 20,000, stable hemoglobin and hematocrit. Chemistry revealed elevated BUN/creatinine from 39/1.54 on day of discharge, to 55/3.43 today. Urology was consulted and recommendations were made to monitor output. Hospitalist was consulted for further evaluation. Allergies Allergy/AdvReac Type Severity Reaction Status Date / Time amoxicillin Allergy Mild RASH Verified 08/11/18 19:26 Home Medications Home Medications Medication Instructions Recorded Confirmed Type potassium chloride 10 meq PO DAILY #10 cap 08/10/18 08/11/18 Rx propranolol 20 mg PO BID #60 tab 08/10/18 08/11/18 Rx Past Med/Surg History Medical History Hyperglycemia (Acute) Left flank pain (Acute) Bilateral hydronephrosis (Acute) Metastatic breast cancer (Acute) Hypertension (Acute) Leukopenia (Acute) Breast cancer Metastasis from breast cancer Surgical History H/O section History of knee replacement procedure of left knee History of knee replacement procedure of right knee S/P mastectomy, bilateral Family History Other Family history non-contributory Social History Communication Ability: Effective Beliefs That Will Affect Care: None Current Living Situation: Spouse Other Information That Helps Us Care for You: No Feels Safe at Home: Yes Safety Concerns: Feels Safe At This Time Smoking Status: Never smoker Hx Alcohol Use: No Hx Substance Use: No Review of Systems All systems reviewed & are unremarkable except as noted in HPI & below (Denies any episodes of syncope.) Physical Exam Vital Signs (Past 24 Hours): Last Vital Signs Temp 36.7 C 08/11/18 18:16 Pulse 88 08/11/18 21:20 Resp 18 08/11/18 21:20 BP 82/58 L 08/11/18 21:20 Pulse Ox 98 08/11/18 20:15 Physical Exam: Patient is evaluated with and friend at the bedside. Vitals noted as above and within normal limits with the exception of hypotension. Patient is not febrile or tachycardic or hypoxic. GENERAL: Awake, alert to person, place, and time, nontoxic-appearing, in no distress HENT: Normocephalic, atraumatic. . Mucus membranes appear dry. EYES: Normal conjunctiva. Sclera non-icteric. EOMI. NECK: Supple. Full range of motion. No JVD RESPIRATORY: Clear to auscultation. Normal work of breathing. CARDIAC: Regular rate, normal rhythm. No murmurs. ABDOMEN: Soft, non-distended. Mild tenderness to palpation in all four quadrants. No rebound or guarding. No masses. Bowel sounds are normal. NEURO: No focal gross focal motor deficits noted. . CN II-XII grossly in tact. SKIN: Rash not present. No jaundice noted. Significant lesions not present. PSYCH: Appropriate mood and affect. Cooperative. Exam as done by Rosetta Larsen MD, [employer]. Results & Data Laboratory Results 08/11/18 08/11/18 08/11/18 Range/Units 19:18 19:18 18:30 WBC 20.81 H (4.8-10.8) K/uL RBC 4.12 L (4.2-5.4) M/uL Hgb 11.4 L (12.0-16.0) g/dL Hct 32.8 L (37-47) % MCV 79.6 L (80-100) fL MCH 27.7 (25-34) pg MCHC 34.8 (32-36) g/dL RDW Std Deviation 43.9 (36.4-46.3) fL RDW Coeff of Jazmyne 15.1 H (11.5-14.5) % Plt Count 207 (130-400) K/uL MPV 9.7 (7.4-10.4) fL Neutrophils % (Manual) 87.9 % Lymphocytes % (Manual) 0.9 % Monocytes % (Manual) 3.4 % Metamyelocytes % (Man) 5.2 % Myelocytes % (Man) 2.6 % Neutrophils # (Manual) 18.29 H (1.4-6.5) K/uL Total Absolute Neuts 18.29 H (1.4-6.5) K/uL Lymphocytes # (Manual) 0.19 L (1.2-3.4) K/uL Total Abs Lymphocytes 0.19 L (1.2-3.4) K/uL Monocytes # (Manual) 0.71 H (0.11-0.59) K/uL Metamyelocytes # (Man) 1.08 H (0-0) K/uL Myelocytes # (Manual) 0.54 H (0-0) K/uL Hyposegmented Neuts 1+ Polychromasia 1+ Ovalocytes 1+ Echinocytes 2+ Sodium 128 L (136-145) mmol/L Potassium 3.6 (3.5-5.1) mmol/L Chloride 95 L (98-107) mmol/L Carbon Dioxide 21 (21-32) mmol/L Anion Gap 11.0 (3-11) BUN 55 H (7-18) mg/dl Creatinine 3.43 H D (0.6-1.2) mg/dl Est Cr Clr Drug Dosing Not Reportable Est GFR ( Amer) 16.1 Est GFR (Non-Af Amer) 13.9 BUN/Creatinine Ratio 15.9 (10-20) Glucose 136 H (70-99) mg/dl Calcium 8.8 (8.5-10.1) mg/dl Total Bilirubin 2.5 H (0.2-1) mg/dl AST 37 (15-37) U/L ALT 40 (12-78) U/L Alkaline Phosphatase 148 H (45-117) U/L C-Reactive Protein 26.90 H (0-0.29) mg/dl Total Protein 6.4 (6.4-8.2) gm/dl Albumin 2.5 L (3.4-5.0) gm/dl Globulin 3.9 (2.5-4.0) gm/dl Albumin/Globulin Ratio 0.6 L (0.9-2) Lipase 66 L (73-393) U/L Urine Color Yaneli Urine Appearance Slightly Cloudy (Clear) Urine pH 7.5 (4.5-7.5) Ur Specific [place] <= 1.005 (1.000-1.030) Urine Protein 2+ H (Negative) Urine Glucose (UA) Negative (Negative) Urine Ketones Negative (Negative) Urine Blood 3+ H (Negative) Urine Nitrite Negative (Negative) Urine Bilirubin Negative (Negative) Urine Urobilinogen Negative (Negative) Ur Leukocyte Esterase 2+ H (Negative) Urine RBC >30 H (0-4) /hpf Urine WBC 5-10 H (0-5) /hpf Ur Epithelial Cells >30 H (0-5) /lpf Urine Bacteria 1+ H (Negative) Hyaline Casts 0-5 (0-5) /lpf Supervising Physician Co-Signing Physician Notes Attending addendum: I have physically seen this patient, have supervised the medical residents activities, and agree with the H&P unless as otherwise noted. Assessment and Plan: Shock- septic, hypovolemic Admit to the Intensive Care Unit. Likely urinary source, s/p b/l ureteral stents due to obstruction associated with metastatic breast cancer. Follow urine culture and sensitivities. Received 3-1/2 L IV fluid all in the ED. Continue Normosol at 125 mils per hour Empiric cefepime IV. Zofran 4 mg IV every 6 hours as needed. Acetaminophen 1000 mg IV every 6 hours as needed mild pain or temperature. Continue Kay catheter for accurate monitoring of fluid balance. Consult urology. Consult broomcorn sorter. Remainder of orders and notations as noted. Resident Activity Tracking Resident Involvement: Resident Care Provided Care Provided: Adult Hospital Medicine
[2018-08-11] MEDS ORDERED: ALBUMIN HUMAN 25% 12.5 GM/50 ML VIAL IV ONE (21:57)
[2018-08-11] MEDS: ALBUMIN 25% 50 ML IV SCH ×2 (22:47→23:38)
[2018-08-11] MEDS ORDERED: HYDROmorphone INJ 0.5 MG/0.5 ML SYR IV PRN (23:32)
[2018-08-11] MEDS ORDERED: ICU PROTOCOL FOR HYPERGLYCEMIA PRN (23:32)
[2018-08-11] MEDS ORDERED: ONDANSETRON INJ 2 MG/ML 2 ML VIAL IV PRN (23:32)
[2018-08-11] MEDS: NORMOSOL-R 1,000 ML IV SCH (23:40)
[2018-08-12] MEDS ORDERED: CEFEPIME 1,000 MG in SYRINGE 0 ML IV SCH ×2 (01:00→12:00)
[2018-08-12] MEDS ORDERED: CEFEPIME CONSULT ACTIVE PRN (02:24)
[2018-08-12 04:16] LABS: Cdiff Antigen Negative; Cdiff Toxin A+B Negative Cdiff Toxin (Negative)
[2018-08-12 04:52] LABS: Hematocrit (blood only) 27.8 % (37-47); Hemoglobin 9.4 g/dL (12.0-16.0); Mean Corpuscular Hgb Conc 33.8 g/dL (32-36); Mean Corpuscular Volume 80.3 fL (80-100); Mean Platelet Volume 9.2 fL (7.4-10.4); Platelet Count 154 K/uL (130-400); RDW Coefficient of Variation 15.5 % (11.5-14.5); RDW Standard Deviation 45.2 fL (36.4-46.3); Red Blood Count 3.46 M/uL (4.2-5.4); White Blood Count 19.92 K/uL (4.8-10.8)
[2018-08-12 05:02] LABS: INR 1.3 (0.9-1.1); Prothrombin Time 12.7 Seconds (9.0-12.0)
[2018-08-12 05:14] LABS: BUN Creatinine Ratio 14.9 (10-20); Calcium 7.2 mg/dl (8.5-10.1); Creatinine Clr Calc Pharmacy 18.7 ml/min; Est GFR (Non-African American) 13.8; Magnesium 1.5 mg/dl (1.8-2.4); Phosphorus 4.2 mg/dl (2.5-4.9); Potassium 4.2 mmol/L (3.5-5.1)
[2018-08-12 05:15] LABS: Dohle Bodies 2+; Eosinophils # (auto) 0.01 K/uL (0-0.5); Eosinophils % (auto) 0.1 %; Immature Granulocytes # (auto) 1.84 K/uL (0.00-0.02); Immature Granulocytes % (auto) 9.2 %; Lymphocytes # (auto) 0.39 K/uL (1.2-3.4); Monocytes # (auto) 1.26 K/uL (0.11-0.59); Monocytes % (auto) 6.3 %; Neutrophils # (auto) 16.42 K/uL (1.4-6.5); Neutrophils % (auto) 82.4 %; Toxic Vacuolation 1+
[2018-08-12] MEDS ORDERED: CEFEPIME 1,000 MG in SYRINGE 0 ML IV ONE (06:45)
[2018-08-12] MEDS: NORMOSOL-R 1,000 ML IV SCH ×2 (07:40→17:29)
[2018-08-12] MEDS ORDERED: MAGNESIUM SULFATE / D5W 1 GM/100 ML BAG IV ONE (07:46)
--- NOTE | 2018-08-12 08:04 | Urology Consultation ---
Date of Consultation August 12, 2018 Assessment & Plan (1) Hypovolemic shock: (2) Acute renal failure: (3) Bilateral hydronephrosis: 58yo with metastatic breast ca, s/p bilateral ureteral stent placement with n/v/ dehydration. hypovolemic shock, AMERICA. Care discussed with Dr. Mejias, imaging reviewed. Stents in good position. Renal US shows stable hydronephrosis. Continue kay catheter, monitor I&Os closely. Rehydrate for 24 hours, if no improvement in Cr may consider reimaging with CT scan. Recommend nephrology consult for AMERICA. Thank you for the consultation, we will continue to monitor closely with primary service. History of Present Illness Reason for Consultation: s/p bilateral stents, [place] Requesting Physician: Dr. Litzy Mejias Attending Physician: Jw Mejias MD History of Present Illness 58YO female with metastatic breast cancer (managed by [facility]), with bilateral hydronephrosis d/t pelvic lymph node enlargement. Bilateral ureteral stents placed by on 08/09. Discharge home in stable condition. Presented back to [facility] on 08/11 with nausea/vomiting, headache, and dehydration. Found to be hypotensive, with acute kidney injury and hyponatremia. Cr. 3.43 on admission (Cr. 1.54 on 08/10) Pt appears comfortable upon evaluation. Denies significant flank pain, some urgency/pressure. Denies n/v or more diarrhea upon admission. Allergies Allergy/AdvReac Type Severity Reaction Status Date / Time amoxicillin Allergy Mild RASH Verified 08/11/18 19:26 Home Medications Home Medications Medication Instructions Recorded Confirmed Type potassium chloride 10 meq PO DAILY #10 cap 08/10/18 08/11/18 Rx propranolol 20 mg PO BID #60 tab 08/10/18 08/11/18 Rx Patient History Medical History Hyperglycemia (Acute) Left flank pain (Acute) Bilateral hydronephrosis (Acute) Metastatic breast cancer (Acute) Hypertension (Acute) Leukopenia (Acute) Breast cancer Metastasis from breast cancer Surgical History H/O section History of knee replacement procedure of left knee History of knee replacement procedure of right knee S/P mastectomy, bilateral Family History Other Family history non-contributory Social History Communication Ability: Effective Beliefs That Will Affect Care: None Current Living Situation: Spouse Other Information That Helps Us Care for You: No Feels Safe at Home: Yes Safety Concerns: Feels Safe At This Time Smoking Status: Never smoker Hx Alcohol Use: No Hx Substance Use: No Review of Systems Constitutional: no fever and no chills Eyes: no problem reported Ear, Nose, Mouth, Throat: no ear pain and no tinnitus Respiratory: no cough and no dyspnea Cardiovascular: no chest pain Gastrointestinal: no abdominal pain, no nausea and no vomiting Genitourinary (Female): + urinary frequency and + urinary urgency; no nocturia, no hematuria and no flank pain Musculoskeletal: no back pain Integumentary: no acne and no lesions Neurologic: no gait abnormality and no falls Psychiatric: no behavioral changes and no hopelessness Endocrine: no fatigue and no polydipsia Hematologic / Lymphatic: no easy bleeding Allergy / Immunological: no GI upset with certain foods and no lip swelling Physical Exam Vital Signs (Past 24 Hours): Last Vital Signs Temp 36.6 C 08/12/18 04:20 Pulse 80 08/12/18 06:00 Resp 19 08/12/18 06:00 BP 133/74 08/12/18 06:00 Pulse Ox 91 08/12/18 06:00 Constitutional: no acute distress Eyes: no nystagmus ENMT: Ears: no hearing impairment Neck: + trachea not midline Respiratory: no respiratory distress Cardiovascular: Rate/Rhythm: + abnormal rhythm Vessels: no JVD Gastrointestinal (Abdomen): Inspection/Auscultation: abdomen not distended and no abdominal edema Musculoskeletal: Head/Neck/Chest: + abnormal head shape Skin: turgor not decreased Neurologic: awake; not confused and not obtunded Motor/Sensory: no tremor Psychiatric: Orientation: alert and oriented x 3 Lymphatic: no lymphadenopathy Results & Data Laboratory Results Laboratory Results - last 48 hr 08/11/18 08/11/18 08/11/18 18:30 19:18 19:18 WBC 20.81 H RBC 4.12 L Hgb 11.4 L Hct 32.8 L MCV 79.6 L MCH 27.7 MCHC 34.8 RDW Std Deviation 43.9 RDW Coeff of Jazmyne 15.1 H Plt Count 207 MPV 9.7 Immature Gran % (Auto) Neut % (Auto) Lymph % (Auto) [place] % (Auto) Eos % (Auto) Baso % (Auto) Immature Gran # (Auto) Neut # (Auto) Lymph # (Auto) [place] # (Auto) Eos # (Auto) Baso # (Auto) Neutrophils % (Manual) 87.9 Lymphocytes % (Manual) 0.9 Monocytes % (Manual) 3.4 Metamyelocytes % (Man) 5.2 Myelocytes % (Man) 2.6 Neutrophils # (Manual) 18.29 H Total Absolute Neuts 18.29 H Lymphocytes # (Manual) 0.19 L Total Abs Lymphocytes 0.19 L Monocytes # (Manual) 0.71 H Metamyelocytes # (Man) 1.08 H Myelocytes # (Manual) 0.54 H Hyposegmented Neuts 1+ Toxic Vacuolation Dohle Bodies Polychromasia 1+ Ovalocytes 1+ Echinocytes 2+ PT INR Sodium 128 L Potassium 3.6 Chloride 95 L Carbon Dioxide 21 Anion Gap 11.0 BUN 55 H Creatinine 3.43 H D Est Cr Clr Drug Dosing Not Reportable Est GFR ( Amer) 16.1 Est GFR (Non-Af Amer) 13.9 BUN/Creatinine Ratio 15.9 Glucose 136 H POC Glucose Calcium 8.8 Phosphorus Magnesium Total Bilirubin 2.5 H AST 37 ALT 40 Alkaline Phosphatase 148 H C-Reactive Protein 26.90 H Total Protein 6.4 Albumin 2.5 L Globulin 3.9 Albumin/Globulin Ratio 0.6 L Lipase 66 L Urine Color Yaneli Urine Appearance Slightly Cloudy Urine pH 7.5 Ur Specific [place] <= 1.005 Urine Protein 2+ H Urine Glucose (UA) Negative Urine Ketones Negative Urine Blood 3+ H Urine Nitrite Negative Urine Bilirubin Negative Urine Urobilinogen Negative Ur Leukocyte Esterase 2+ H Urine RBC >30 H Urine WBC 5-10 H Ur Epithelial Cells >30 H Urine Bacteria 1+ H Hyaline Casts 0-5 Nasal Screen MRSA (PCR) Stl C. diff Tox B Gene Stl C.difficile Tox A&B 08/11/18 08/11/18 08/12/18 23:30 23:42 01:40 WBC RBC Hgb Hct MCV MCH MCHC RDW Std Deviation RDW Coeff of Jazmyne Plt Count MPV Immature Gran % (Auto) Neut % (Auto) Lymph % (Auto) [place] % (Auto) Eos % (Auto) Baso % (Auto) Immature Gran # (Auto) Neut # (Auto) Lymph # (Auto) [place] # (Auto) Eos # (Auto) Baso # (Auto) Neutrophils % (Manual) Lymphocytes % (Manual) Monocytes % (Manual) Metamyelocytes % (Man) Myelocytes % (Man) Neutrophils # (Manual) Total Absolute Neuts Lymphocytes # (Manual) Total Abs Lymphocytes Monocytes # (Manual) Metamyelocytes # (Man) Myelocytes # (Manual) Hyposegmented Neuts Toxic Vacuolation Dohle Bodies Polychromasia Ovalocytes Echinocytes PT INR Sodium Potassium Chloride Carbon Dioxide Anion Gap BUN Creatinine Est Cr Clr Drug Dosing Est GFR ( Amer) Est GFR (Non-Af Amer) BUN/Creatinine Ratio Glucose POC Glucose 110 H Calcium Phosphorus Magnesium Total Bilirubin AST ALT Alkaline Phosphatase C-Reactive Protein Total Protein Albumin Globulin Albumin/Globulin Ratio Lipase Urine Color Urine Appearance Urine pH Ur Specific [place] Urine Protein Urine Glucose (UA) Urine Ketones Urine Blood Urine Nitrite Urine Bilirubin Urine Urobilinogen Ur Leukocyte Esterase Urine RBC Urine WBC Ur Epithelial Cells Urine Bacteria Hyaline Casts Nasal Screen MRSA (PCR) Negative Stl C. diff Tox B Gene Positive Cdiff Gene A Stl C.difficile Tox A&B Negative Cdiff Toxin 08/12/18 08/12/18 08/12/18 04:42 04:42 04:42 WBC 19.92 H RBC 3.46 L Hgb 9.4 L Hct 27.8 L MCV 80.3 MCH 27.2 MCHC 33.8 RDW Std Deviation 45.2 RDW Coeff of Jazmyne 15.5 H Plt Count 154 MPV 9.2 Immature Gran % (Auto) 9.2 Neut % (Auto) 82.4 Lymph % (Auto) 2.0 [place] % (Auto) 6.3 Eos % (Auto) 0.1 Baso % (Auto) 0.0 Immature Gran # (Auto) 1.84 H Neut # (Auto) 16.42 H Lymph # (Auto) 0.39 L [place] # (Auto) 1.26 H Eos # (Auto) 0.01 Baso # (Auto) 0.00 Neutrophils % (Manual) Lymphocytes % (Manual) Monocytes % (Manual) Metamyelocytes % (Man) Myelocytes % (Man) Neutrophils # (Manual) Total Absolute Neuts Lymphocytes # (Manual) Total Abs Lymphocytes Monocytes # (Manual) Metamyelocytes # (Man) Myelocytes # (Manual) Hyposegmented Neuts Toxic Vacuolation 1+ Dohle Bodies 2+ Polychromasia Ovalocytes Echinocytes PT 12.7 H INR 1.3 H Sodium 130 L Potassium 4.2 D Chloride 98 Carbon Dioxide 19 L Anion Gap 13.0 H BUN 51 H Creatinine 3.45 H Est Cr Clr Drug Dosing 18.7 Est GFR ( Amer) 16.0 Est GFR (Non-Af Amer) 13.8 BUN/Creatinine Ratio 14.9 Glucose 94 POC Glucose Calcium 7.2 L D Phosphorus 4.2 Magnesium 1.5 L Total Bilirubin AST ALT Alkaline Phosphatase C-Reactive Protein Total Protein Albumin Globulin Albumin/Globulin Ratio Lipase Urine Color Urine Appearance Urine pH Ur Specific [place] Urine Protein Urine Glucose (UA) Urine Ketones Urine Blood Urine Nitrite Urine Bilirubin Urine Urobilinogen Ur Leukocyte Esterase Urine RBC Urine WBC Ur Epithelial Cells Urine Bacteria Hyaline Casts Nasal Screen MRSA (PCR) Stl C. diff Tox B Gene Stl C.difficile Tox A&B
[2018-08-12] MEDS ORDERED: MAGNESIUM SULFATE / D5W 1 GM/100 ML BAG IV SCH (09:00)
--- NOTE | 2018-08-12 10:40 | CT Scan Report ---
ABDOMEN AND PELVIS CT WITHOUT CONTRAST CT DOSE: 1015.26 mGycm HISTORY: Bilateral hydronephrosis. TECHNIQUE: Multiaxial CT images of the abdomen and pelvis were performed without contrast. A dose lo wering technique was utilized adhering to the principles of ALARA. COMPARISON STUDY: Abdomen and pelvis CT 08/12/2018. FINDINGS: Evidence for bilateral breast augmentation. Small bilateral pleural effusions with bibasila r densities suggesting atelectasis. No pneumoperitoneum. No pneumatosis. T8-T10 posterior fusion and decompression. Severe compression deformity with vertebroplasty at T9. Trace ascites. The unenhanced liver, spleen, and pancreas are unremarkable. A few small gallstones. Bilateral perinephric edema/inf iltration, right greater than left. Moderate bilateral hydroureteronephrosis with bilateral ureteral stents which appear in good position. The bladder is decompressed by Brown catheter. Retroperitoneal soft tissue infiltration, right greater than left. This surrounds a portion of the ureters and the IV C. This may represent metastatic disease. There is also retroperitoneal and left external iliac lymph adenopathy also likely representing metastatic disease. Dominant left external iliac lymph node appea rs necrotic and measures 4 cm. Hyperdense lesion within the fundus of the uterus measures 4 cm. This remains unchanged and favors a uterine fibroid. Perirectal edema has progressed. There is mild bowel wall thickening involving the majority of the colon with mild pericolonic fat stranding. The conus fl uid-filled. This is consistent with a pancolitis. No evidence for bowel obstruction. IMPRESSION: 1. Interval development of a pancolitis which favors an infectious or inflammatory process. 2. Retroperitoneal and left external iliac lymphadenopathy which likely represents metastatic disease . There is also soft tissue infiltration within the retroperitoneum which partially surrounds the ure ters and IVC. This may also represent metastatic disease. 3. Moderate bilateral hydronephrosis. There are bilateral ureteral stents which appear in good positi on. 4. Small bilateral pleural effusions and trace ascites. 5. Cholelithiasis. 6. Progressive perirectal edema. 7. Additional findings as described above. Electronically signed by: Kevin Carter M.D. 08/12/2018 10:39 AM
[2018-08-12] MEDS: RASPBERRY SYRUP 5 ML UDP PO SCH ×3 (11:10→23:47)
[2018-08-12] MEDS: VANCOMYCIN HCL 250 MG/5 ML SOLN PO SCH ×3 (11:10→23:48)
--- NOTE | 2018-08-12 12:20 | Nephrology Consultation ---
Date of Consultation August 12, 2018 Assessment & Plan (1) Acute renal failure: 58 year old female with acute kidney injury and hyponatremia in the setting bilateral moderate hydronephrosis, hypotension and poor p.o. intake. Creatinine stayed relatively stable around 3.4-3.5 since admission yesterday. Bilateral ureteral stent seem to be in good position and hydronephrosis stable. Although patient has been persistently hypotensive however with underlying moderate bilateral hydronephrosis and pelvic metastasis take disease acute kidney injury most likely combination of obstructive uropathy and prerenal etiology. --continue on IV normal saline at 125 mL/h, if no improvement in renal function or UO in next 24 hours agree with doing repeat imaging. --check serum sodium in afternoon --monitor urine output closely --no acute indication for dialysis at this point however if renal function worsen, patient remained anuric or develop other significant electrolyte abnormality may need to discuss about need for renal replacement therapy Will follow Thank you for allowing me to participate in your patient's care. It was a pleasure to see Samia Pelletier Thank you for the consultation (2) Bilateral hydronephrosis: (3) Hypertension: (4) Hyponatremia: (5) Acute bilateral obstructive uropathy: (6) Metabolic acidosis: History of Present Illness Reason for Consultation: Acute kidney injury hyponatremia. Attending Physician: Jw Mejias MD History of Present Illness Samia Pope is a 58-year-old female with past medical history significant for metastatic breast cancer, admitted to the hospital with acute kidney injury and hyponatremia. Nephrology consult was requested to for management of acute ki dney injury. Electronic medical records including labs and imaging are reviewed in detail during patient's visit. Samia Pelletier initially presented to the hospital on 08/06/2018 with acute left flank pain. Imaging study showed bilateral moderate hydronephrosis cysts and pelvic lymphadenopathy. Had 2 mm nonobstructing right renal calculus with no ureteral calculi. On admission her creatinine was 1.2 which worsened to 2.0 in 2 days and eventually she had bilateral ureteral stent placed on 08/09/2018. Creatinine improved to 1.5 on 08/10/2018 and she was otherwise feeling fine and was discharged home. She came back to ED yesterday with nausea, vomiting, poor p.o. intake and overall decreased urine output. On admission she was hypotensive with blood pressure 88/62. Creatinine was 3.4 on admission which remained relatively stable at 3.5 this morning. She was also found to have hyponatremia on admission yesterday, sodium was 128 which slightly improved to 130 this morning. Has gap metabolic acidosis. CT abdomen pelvis this morning showed ureteral stent in good position and stable bilateral moderate hydronephrosis without further worsening. She has extensive pelvic lymphadenopathy and concern for metastatic disease. CT also suggestive of pancolitis and started on empiric antibiotic. She was diagnosed with metastatic breast cancer with mets to spine in 1999. She was on Afinitor, being managed by [facility]. She remained anuric, has Brown catheter with minimum urine output. Has been on IV normal saline since admission. Nausea and vomiting seems to have improved. Allergies Allergy/AdvReac Type Severity Reaction Status Date / Time amoxicillin Allergy Mild RASH Verified 08/11/18 19:26 Home Medications Home Medications Medication Instructions Recorded Confirmed Type potassium chloride 10 meq PO DAILY #10 cap 08/10/18 08/11/18 Rx propranolol 20 mg PO BID #60 tab 08/10/18 08/11/18 Rx Patient History Medical History Hyperglycemia (Acute) Left flank pain (Acute) Bilateral hydronephrosis (Acute) Metastatic breast cancer (Acute) Hypertension (Acute) Leukopenia (Acute) Breast cancer Metastasis from breast cancer Surgical History H/O section History of knee replacement procedure of left knee History of knee replacement procedure of right knee S/P mastectomy, bilateral Family History Other Family history non-contributory Social History Communication Ability: Effective Beliefs That Will Affect Care: None Current Living Situation: Spouse Other Information That Helps Us Care for You: No Feels Safe at Home: Yes Safety Concerns: Feels Safe At This Time Smoking Status: Never smoker Hx Alcohol Use: No Hx Substance Use: No Review of Systems Detailed review of system was otherwise unremarkable except mentioned above in HPI. Physical Exam Vital Signs (Past 24 Hours): Last Vital Signs Temp 36.6 C 08/12/18 04:20 Pulse 80 08/12/18 06:00 Resp 19 08/12/18 06:00 BP 133/74 08/12/18 06:00 Pulse Ox 91 08/12/18 06:00 Physical Exam: GENERAL: middle aged female, AAA x 3, pleasant, healthy-appearing, not in any distress. HEENT: Atraumatic, normocephalic. NECK: Supple, no JVD, no carotid bruit appreciated. ENT: No sinus tenderness MOUTH and THROAT: Moist oral mucosa, RESPIRATORY: Normal breathing efforts, clear to auscultation bilaterally, no wheezes or rales. CARDIOVASCULAR: S1, S2 normal, rate rhythm regular. ABDOMEN: Soft, nontender, positive bowel sound. MUSCULOSKELETAL: No CVA tenderness. No joint swelling, erythema or tenderness. Normal range of motion. SKIN: No skin rash EXTREMITY: No lower extremity edema NEURO: No gross focal neurological deficit, speech fluent. PSYCHIATRY: Normal mood and judgment Constitutional: WD/WN, vitals as above Neck: supple (1) Hypertension Hypertension type: unspecified Qualified Code(s): I10 - Essential (primary) hypertension
--- NOTE | 2018-08-12 15:00 | Hospitalist Progress Note ---
Date of Service August 12, 2018 Assessment & Plan (1) Hypovolemic shock: Due to diarrhea and poor PO intake. Resolved with IV fluids. Will treat diarrhea as below. - Continue IV fluids - Monitor BP (2) C. difficile diarrhea: Concern for C. diff as patient was on abx while in the hospital during prior admission. CT a/p on 08/12 showed pancolitis, concerning for infectious/inflammatory process. C. diff test on 08/12 had PCR positive, but toxin negative testing, indicating carrier status. However, given the elevated WBC, imaging, and clinical findings, we are treating. - Continue PO vancomycin (3) Acute renal failure: Baseline Cr is ~1.1 with elevation due to the post-renal hydronephrosis from the lymph node enlargement from cancer. Had gone up to 2, but was down to 1.5 on discharge. On admission, Cr was up to 3.4. - Seen by nephrology with thought that it is pre-renal [place] - Continue IV fluids; monitor Cr - Continue IV abx for possible UTI at present; will stop after discussing with urology (4) Acute bilateral obstructive uropathy: Due to lymphadenopathy from metastatic cancer. S/p bilateral ureteral stent placement on 08/[address] a/p on 08/12 showed the stents in good position. - Seen by urology - No acute need for adjustment; can re-image in 24-48 hours if no improvement in Cr - Monitor UOP (5) Metastatic breast cancer: Originally diagnosed in 2008, metastasis to T9 in 2010. Patient is status post multiple chemotherapy regimens and radiation to the spine. CT a/p on 08/12 showed likely metastatic disease within the abdomen. - Will follow up outpatient (6) Hypertension: Prior admission, she was hypertensive. Presently holding home propranolol 20mg BID for hypotension. - Monitor BP (7) DVT prophylaxis: SCDs Subjective 58yo Fw/ hx of metastatic breast cancer who presented due to dehydration and diarrhea. This morning, she is feeling better. No nausea. Still some diarrhea. Reports no fevers/chills, chest pain, shortness of breath, abdominal pain. Physical Exam Vital Signs (Past 24 Hours): Last Vital Signs Temp 36.9 C 08/12/18 12:00 Pulse 85 08/12/18 12:00 Resp 20 08/12/18 12:00 BP 144/82 H 08/12/18 12:00 Pulse Ox 93 08/12/18 12:00 Constitutional: WD/WN, vitals as above Eyes: EOM intact bilaterally; no conjunctival abnormality ENMT: external ear and nose normal, oropharynx normal Neck: trachea midline, no thyromegaly normal visual inspection Respiratory: normal respiratory effort, lungs clear to auscultation no respiratory distress Cardiovascular: RRR, no murmur, no edema Gastrointestinal (Abdomen): Inspection/Auscultation: abdomen normal to inspection; abdomen not distended Musculoskeletal: no cyanosis or clubbing, extremities motor strength 5/5 Skin: no rashes, warm and dry Neurologic: moves all extremities and awake Psychiatric: Orientation: alert, oriented to person and cooperative (1) Hypertension Hypertension type: unspecified Qualified Code(s): I10 - Essential (primary) hypertension
--- NOTE | 2018-08-12 17:12 | Critical Care Consultation ---
Date of Consultation August 12, 2018 Assessment & Plan (1) C. difficile diarrhea: Impression: 1. Sepsis secondary to C. difficile colitis. 2. C. difficile colitis by imaging, although the antigen is negative but the gene is positive and the patient is symptomatic. 3. Hydronephrosis secondary to urolithiasis status post stent placement bilaterally. 4. History of breast CA has been maintained on sirolimus, last dose was taken 10 days ago. 5. Resolved hypotension. 6. AK I on CKD. 7. Metabolic acidosis. Plan: 1. Start the patient on Vanco p.o. 250 every 6 hours. 2. Continue with IV fluid. 3. Continue with IV fluid. 4. Replacement of magnesium. 5. Renal consult. 6. Cefepime can be discontinued if the patient does not show any improvement with the above. 7. DVT and GI prophylaxis as well as a core measures for the ICU. 8. Discussed with the patient in details, with the staff on rounds, 9. Disposition plan to the regular floor, appreciate Dr. Mejias acceptance of this case. Critical care time spent with the patient was 45 minutes History of Present Illness Reason for Consultation: Sepsis. Requesting Physician: Dr. Mejias Attending Physician: Jw Mejias MD History of Present Illness Dear Dr. Mejias: Thank you for the kind referral Mrs. Pope to critical care service. This is 58-year-old female with history of urolithiasis, status post stent placement few days ago, history of breast CA, has been maintained on sirolimus which she has not been taking for the past 10 days, after the procedure the patient was discharged home where she had diarrhea that has been persistent, the patient returned to the hospital for further management. When she came into the ER, the patient was hypotensive, and was found to be in acute kidney insufficiency, the patient was given IV fluid to maintain her blood pressure and admitted to the ICU for further management. She was started on broad-spectrum antibiotics. Cultures were obtained. When I interviewed the patient, she denies any nausea or vomiting although she did have earlier, diarrhea has been 6 times watery every day, her abdominal pain mainly in the pelvic area, she denies any chest pain, no night sweats, she does not be with dizziness, she improved overnight. Review of system otherwise was unremarkable. Allergies Allergy/AdvReac Type Severity Reaction Status Date / Time amoxicillin Allergy Mild RASH Verified 08/11/18 19:26 Home Medications Home Medications Medication Instructions Recorded Confirmed Type potassium chloride 10 meq PO DAILY #10 cap 08/10/18 08/11/18 Rx propranolol 20 mg PO BID #60 tab 08/10/18 08/11/18 Rx Patient History Medical History Hyperglycemia (Acute) Left flank pain (Acute) Bilateral hydronephrosis (Acute) Metastatic breast cancer (Acute) Hypertension (Acute) Leukopenia (Acute) Breast cancer Metastasis from breast cancer Surgical History H/O section History of knee replacement procedure of left knee History of knee replacement procedure of right knee S/P mastectomy, bilateral Family History Other Family history non-contributory Social History Communication Ability: Effective Beliefs That Will Affect Care: None Current Living Situation: Spouse Other Information That Helps Us Care for You: No Feels Safe at Home: Yes Safety Concerns: Feels Safe At This Time Smoking Status: Never smoker Hx Alcohol Use: No Hx Substance Use: No Review of Systems 10 systems has been reviewed, unremarkable except for the above. Physical Exam Vital Signs (Past 24 Hours): Last Vital Signs Temp 36.9 C 08/12/18 12:00 Pulse 85 08/12/18 12:00 Resp 20 08/12/18 12:00 BP 144/82 H 08/12/18 12:00 Pulse Ox 93 08/12/18 12:00 Physical Exam: Her vital signs currently stable, S1-S2 regular rate and rhythm, lungs are clear, abdomen is tender mainly in the pelvic area, positive bowel sounds, no edema in the periphery. No skin rash. No oral thrush. No neck stiffness and neurologically she is nonfocal. Results & Data Laboratory Results Her labs were reviewed which showed leukocytosis, hematocrit of 27, bandemia, BUN and creatinine 51 and 3.45. Positive C. difficile gene and negative toxin. Diagnostic Findings Pancolitis was noted on the CAT scan, lymphadenopathy in the external iliac area, moderate hydronephrosis.
[2018-08-13] MEDS: NORMOSOL-R 1,000 ML IV SCH ×2 (01:29→09:33)
[2018-08-13] MEDS: VANCOMYCIN HCL 250 MG/5 ML SOLN PO SCH ×3 (05:57→20:04)
[2018-08-13] MEDS: RASPBERRY SYRUP 5 ML UDP PO SCH ×3 (05:57→20:04)
[2018-08-13] MEDS ORDERED: CEFEPIME 2,000 MG in SYRINGE 7.5 ML IV SCH (07:00)
[2018-08-13 07:10] VITALS: TEMP 97.9
[2018-08-13 07:26] LABS: Basophils # (auto) 0.01 K/uL (0-0.2); Basophils % (auto) 0.1 %; Eosinophils # (auto) 0.13 K/uL (0-0.5); Eosinophils % (auto) 0.8 %; Hematocrit (blood only) 29.7 % (37-47); Immature Granulocytes # (auto) 0.42 K/uL (0.00-0.02); Immature Granulocytes % (auto) 2.7 %; Lymphocytes # (auto) 0.65 K/uL (1.2-3.4); Lymphocytes % (auto) 4.1 %; Mean Corpuscular Hgb Conc 33.7 g/dL (32-36); Mean Corpuscular Volume 80.5 fL (80-100); Mean Platelet Volume 9.8 fL (7.4-10.4); Monocytes # (auto) 0.96 K/uL (0.11-0.59); Monocytes % (auto) 6.1 %; Neutrophils % (auto) 86.2 %; Platelet Count 198 K/uL (130-400); RDW Coefficient of Variation 15.7 % (11.5-14.5); RDW Standard Deviation 45.6 fL (36.4-46.3); Red Blood Count 3.69 M/uL (4.2-5.4); White Blood Count 15.67 K/uL (4.8-10.8)
[2018-08-13 07:37] LABS: Prothrombin Time 10.5 Seconds (9.0-12.0)
[2018-08-13 08:12] LABS: BUN Creatinine Ratio 12.2 (10-20); Creatinine Clr Calc Pharmacy 12.5 ml/min; Est GFR (African American) 9.8; Est GFR (Non-African American) 8.5; Magnesium 2.2 mg/dl (1.8-2.4); Phosphorus 3.3 mg/dl (2.5-4.9); Potassium 3.5 mmol/L (3.5-5.1)
--- NOTE | 2018-08-13 09:54 | Urology Progress Note ---
Date of Service August 13, 2018 Assessment & Plan (1) Bilateral hydronephrosis: 58yo with metastatic breast ca, s/p bilateral ureteral stent placement with n/v/ dehydration. hypovolemic shock, [place]. NO improvement in UO, worsening kidney function today. Care discussed with Dr. Calles - concern for potential post-renal contributing cause for worsening kidney function as she has been rehydrated x24 hours with solid blood pressure, without improved renal function. CT imaging personally reviewed by Dr. Fuller - Stents in good position, mild- mod hydronephrosis appears stable. I had lengthy discussion with patient, family discussing options moving forward. It is uncertain whether bilateral neph tubes will improve her renal function, however it is worth evaluation by tertiary center. It is our recommendation to transfer patient to center with IR services to evaluate for possible bilateral neph tube placement. Thank you for the consultation, please recontact our service with any additional concerns, questions or changes in patient status. Subjective 58yo with metastatic breast ca, s/p bilateral ureteral stent placement with n/v/ dehydration. hypovolemic shock, [place]. Unfortunately UO has not improved and Cr has worsened with IV fluid replacement therapy x24 hours. Pt sitting in chair at side of bed at time of evaluation. and friend at bedside. Patient has minima appetite, on clear liquids. Acknowledges some urgency/freq. Brown catheter intact - minimal output. Continued bouts of diarrhea. Concern for C.diff, +gene, neg toxin. Review of Systems All systems reviewed & are unremarkable except as noted in HPI & below Genitourinary (Female): + urinary frequency and + urinary urgency; no nocturia, no hematuria and no flank pain Physical Exam Vital Signs (Past 24 Hours): Last Vital Signs Temp 36.6 C 08/13/18 07:09 Pulse 76 08/13/18 07:09 Resp 16 08/13/18 07:09 BP 132/71 08/13/18 07:09 Pulse Ox 93 08/13/18 07:09 Physical Exam: A&Ox3 RRR Mild LE bilat edema Psych: flat affect Results & Data Laboratory Results Laboratory Results - last 48 hr 08/11/18 08/11/18 08/11/18 18:30 19:18 19:18 WBC 20.81 H RBC 4.12 L Hgb 11.4 L Hct 32.8 L MCV 79.6 L MCH 27.7 MCHC 34.8 RDW Std Deviation 43.9 RDW Coeff of Jazmyne 15.1 H Plt Count 207 MPV 9.7 Immature Gran % (Auto) Neut % (Auto) Lymph % (Auto) [place] % (Auto) Eos % (Auto) Baso % (Auto) Immature Gran # (Auto) Neut # (Auto) Lymph # (Auto) [place] # (Auto) Eos # (Auto) Baso # (Auto) Neutrophils % (Manual) 87.9 Lymphocytes % (Manual) 0.9 Monocytes % (Manual) 3.4 Metamyelocytes % (Man) 5.2 Myelocytes % (Man) 2.6 Neutrophils # (Manual) 18.29 H Total Absolute Neuts 18.29 H Lymphocytes # (Manual) 0.19 L Total Abs Lymphocytes 0.19 L Monocytes # (Manual) 0.71 H Metamyelocytes # (Man) 1.08 H Myelocytes # (Manual) 0.54 H Hyposegmented Neuts 1+ Toxic Vacuolation Dohle Bodies Polychromasia 1+ Ovalocytes 1+ Echinocytes 2+ PT INR Sodium 128 L Potassium 3.6 Chloride 95 L Carbon Dioxide 21 Anion Gap 11.0 BUN 55 H Creatinine 3.43 H D Est Cr Clr Drug Dosing Not Reportable Est GFR ( Amer) 16.1 Est GFR (Non-Af Amer) 13.9 BUN/Creatinine Ratio 15.9 Glucose 136 H POC Glucose Calcium 8.8 Phosphorus Magnesium Total Bilirubin 2.5 H AST 37 ALT 40 Alkaline Phosphatase 148 H C-Reactive Protein 26.90 H Total Protein 6.4 Albumin 2.5 L Globulin 3.9 Albumin/Globulin Ratio 0.6 L Lipase 66 L Urine Color Yaneli Urine Appearance Slightly Cloudy Urine pH 7.5 Ur Specific [place] <= 1.005 Urine Protein 2+ H Urine Glucose (UA) Negative Urine Ketones Negative Urine Blood 3+ H Urine Nitrite Negative Urine Bilirubin Negative Urine Urobilinogen Negative Ur Leukocyte Esterase 2+ H Urine RBC >30 H Urine WBC 5-10 H Ur Epithelial Cells >30 H Urine Bacteria 1+ H Hyaline Casts 0-5 Nasal Screen MRSA (PCR) Stl C. diff Tox B Gene Stl C.difficile Tox A&B 08/11/18 08/11/18 08/12/18 23:30 23:42 01:40 WBC RBC Hgb Hct MCV MCH MCHC RDW Std Deviation RDW Coeff of Jazmyne Plt Count MPV Immature Gran % (Auto) Neut % (Auto) Lymph % (Auto) [place] % (Auto) Eos % (Auto) Baso % (Auto) Immature Gran # (Auto) Neut # (Auto) Lymph # (Auto) [place] # (Auto) Eos # (Auto) Baso # (Auto) Neutrophils % (Manual) Lymphocytes % (Manual) Monocytes % (Manual) Metamyelocytes % (Man) Myelocytes % (Man) Neutrophils # (Manual) Total Absolute Neuts Lymphocytes # (Manual) Total Abs Lymphocytes Monocytes # (Manual) Metamyelocytes # (Man) Myelocytes # (Manual) Hyposegmented Neuts Toxic Vacuolation Dohle Bodies Polychromasia Ovalocytes Echinocytes PT INR Sodium Potassium Chloride Carbon Dioxide Anion Gap BUN Creatinine Est Cr Clr Drug Dosing Est GFR ( Amer) Est GFR (Non-Af Amer) BUN/Creatinine Ratio Glucose POC Glucose 110 H Calcium Phosphorus Magnesium Total Bilirubin AST ALT Alkaline Phosphatase C-Reactive Protein Total Protein Albumin Globulin Albumin/Globulin Ratio Lipase Urine Color Urine Appearance Urine pH Ur Specific [place] Urine Protein Urine Glucose (UA) Urine Ketones Urine Blood Urine Nitrite Urine Bilirubin Urine Urobilinogen Ur Leukocyte Esterase Urine RBC Urine WBC Ur Epithelial Cells Urine Bacteria Hyaline Casts Nasal Screen MRSA (PCR) Negative Stl C. diff Tox B Gene Positive Cdiff Gene A Stl C.difficile Tox A&B Negative Cdiff Toxin 08/12/18 08/12/18 08/12/18 04:42 04:42 04:42 WBC 19.92 H RBC 3.46 L Hgb 9.4 L Hct 27.8 L MCV 80.3 MCH 27.2 MCHC 33.8 RDW Std Deviation 45.2 RDW Coeff of Jazmyne 15.5 H Plt Count 154 MPV 9.2 Immature Gran % (Auto) 9.2 Neut % (Auto) 82.4 Lymph % (Auto) 2.0 [place] % (Auto) 6.3 Eos % (Auto) 0.1 Baso % (Auto) 0.0 Immature Gran # (Auto) 1.84 H Neut # (Auto) 16.42 H Lymph # (Auto) 0.39 L [place] # (Auto) 1.26 H Eos # (Auto) 0.01 Baso # (Auto) 0.00 Neutrophils % (Manual) Lymphocytes % (Manual) Monocytes % (Manual) Metamyelocytes % (Man) Myelocytes % (Man) Neutrophils # (Manual) Total Absolute Neuts Lymphocytes # (Manual) Total Abs Lymphocytes Monocytes # (Manual) Metamyelocytes # (Man) Myelocytes # (Manual) Hyposegmented Neuts Toxic Vacuolation 1+ Dohle Bodies 2+ Polychromasia Ovalocytes Echinocytes PT 12.7 H INR 1.3 H Sodium 130 L Potassium 4.2 D Chloride 98 Carbon Dioxide 19 L Anion Gap 13.0 H BUN 51 H Creatinine 3.45 H Est Cr Clr Drug Dosing 18.7 Est GFR ( Amer) 16.0 Est GFR (Non-Af Amer) 13.8 BUN/Creatinine Ratio 14.9 Glucose 94 POC Glucose Calcium 7.2 L D Phosphorus 4.2 Magnesium 1.5 L Total Bilirubin AST ALT Alkaline Phosphatase C-Reactive Protein Total Protein Albumin Globulin Albumin/Globulin Ratio Lipase Urine Color Urine Appearance Urine pH Ur Specific [place] Urine Protein Urine Glucose (UA) Urine Ketones Urine Blood Urine Nitrite Urine Bilirubin Urine Urobilinogen Ur Leukocyte Esterase Urine RBC Urine WBC Ur Epithelial Cells Urine Bacteria Hyaline Casts Nasal Screen MRSA (PCR) Stl C. diff Tox B Gene Stl C.difficile Tox A&B 08/13/18 08/13/18 08/13/18 06:53 06:53 06:53 WBC 15.67 H RBC 3.69 L Hgb 10.0 L Hct 29.7 L MCV 80.5 MCH 27.1 MCHC 33.7 RDW Std Deviation 45.6 RDW Coeff of Jazmyne 15.7 H Plt Count 198 MPV 9.8 Immature Gran % (Auto) 2.7 Neut % (Auto) 86.2 Lymph % (Auto) 4.1 [place] % (Auto) 6.1 Eos % (Auto) 0.8 Baso % (Auto) 0.1 Immature Gran # (Auto) 0.42 H Neut # (Auto) 13.50 H Lymph # (Auto) 0.65 L [place] # (Auto) 0.96 H Eos # (Auto) 0.13 Baso # (Auto) 0.01 Neutrophils % (Manual) Lymphocytes % (Manual) Monocytes % (Manual) Metamyelocytes % (Man) Myelocytes % (Man) Neutrophils # (Manual) Total Absolute Neuts Lymphocytes # (Manual) Total Abs Lymphocytes Monocytes # (Manual) Metamyelocytes # (Man) Myelocytes # (Manual) Hyposegmented Neuts Toxic Vacuolation Dohle Bodies Polychromasia Ovalocytes Echinocytes PT 10.5 INR 1.0 Sodium 131 L Potassium 3.5 D Chloride 99 Carbon Dioxide 19 L Anion Gap 13.0 H BUN 63 H Creatinine 5.16 H* D Est Cr Clr Drug Dosing 12.5 Est GFR ( Amer) 9.8 Est GFR (Non-Af Amer) 8.5 BUN/Creatinine Ratio 12.2 Glucose 83 POC Glucose Calcium 8.0 L Phosphorus 3.3 Magnesium 2.2 Total Bilirubin AST ALT Alkaline Phosphatase C-Reactive Protein Total Protein Albumin Globulin Albumin/Globulin Ratio Lipase Urine Color Urine Appearance Urine pH Ur Specific [place] Urine Protein Urine Glucose (UA) Urine Ketones Urine Blood Urine Nitrite Urine Bilirubin Urine Urobilinogen Ur Leukocyte Esterase Urine RBC Urine WBC Ur Epithelial Cells Urine Bacteria Hyaline Casts Nasal Screen MRSA (PCR) Stl C. diff Tox B Gene Stl C.difficile Tox A&B
--- NOTE | 2018-08-13 10:43 | Nephrology Progress Note ---
Date of Service August 13, 2018 Assessment & Plan (1) Acute renal failure: 58 year old female with acute kidney injury and hyponatremia in the setting bilateral moderate hydronephrosis, hypotension and poor p.o. intake. Creatinine stayed relatively stable around 3.4-3.5 since admission yesterday. Bilateral ureteral stent seem to be in good position and hydronephrosis stable. Although patient has been persistently hypotensive however with underlying moderate bilateral hydronephrosis and pelvic metastasis take disease acute kidney injury most likely combination of obstructive uropathy and prerenal etiology. renal function has been worsening rapidly with multiple electrolyte abnormality including hyponatremia and metabolic acidosis. She remained anuric. Clinically seemed to be getting slightly volume overloaded although she was having ongoing diarrhea. Although there may be some component of ATN however most likely reason for rapid progressiveworsening of renal function is postrenal obstruction with external pressure on the ureter although stent is in good place -- discontinue further IV fluid -- may need imaging or transfer for nephrostomy tube -- no emergency indication for dialysis at this time however if patient remained anuric and renal function and electrolyte continues to worsen may need to consider dialysis in next 24 hours -- appreciate further urology recommendation and management Will follow Thank you for the consultation (2) Bilateral hydronephrosis: (3) Hypertension: (4) Hyponatremia: (5) Acute bilateral obstructive uropathy: (6) Metabolic acidosis: Subjective Samia Pelletier was seen and examined in her room this morning with her at bedside. She continues to have ongoing diarrhea. Denies shortness of breath or chest pain. tolerating clear liquid diet. She remained anuric. Renal function continues to worsen has metabolic acidosis and hyponatremia. Blood pressure stable. Review of Systems detailed review of system otherwise unremarkable except mentioned above in HPI Physical Exam Vital Signs (Past 24 Hours): Last Vital Signs Temp 36.6 C 08/13/18 07:09 Pulse 76 08/13/18 07:09 Resp 16 08/13/18 07:09 BP 132/71 08/13/18 07:09 Pulse Ox 93 08/13/18 07:09 Constitutional: WD/WN, vitals as above anxious and tearful. Neck: supple Respiratory: Auscultation: + diminished lung sounds and + rales Cardiovascular: RRR, no murmur, no edema Neurologic: moves all extremities and awake Psychiatric: Orientation: alert and oriented x 3 Affect: + anxious affect and + tearful affect (1) Hypertension Hypertension type: unspecified Qualified Code(s): I10 - Essential (primary) hypertension
--- NOTE | 2018-08-13 15:11 | Hospitalist Progress Note ---
Date of Service August 13, 2018 Assessment & Plan (1) Hypovolemic shock: Due to diarrhea and poor PO intake. Resolved with IV fluids. Will treat diarrhea as below. - Continue IV fluids - Monitor BP (2) Acute dehydration: (3) Acute bilateral obstructive uropathy: Due to lymphadenopathy from metastatic cancer. S/p bilateral ureteral stent placement on 08/[address] a/p on 08/12 showed the stents in good position. - Seen by urology - No acute need for adjustment; can re-image in 24-48 hours if no improvement in Cr - Monitor UOP (4) Acute renal failure: Baseline Cr is ~1.1 with elevation due to the post-renal hydronephrosis from the lymph node enlargement from cancer. Had gone up to 2, but was down to 1.5 on discharge. On admission, Cr was up to 3.4. - Seen by nephrology with thought that it is pre-renal [place] - Continue IV fluids; monitor Cr - Continue IV abx for possible UTI at present; will stop after discussing with urology (5) Metastatic breast cancer: Originally diagnosed in 2008, metastasis to T9 in 2010. Patient is status post multiple chemotherapy regimens and radiation to the spine. CT a/p on 08/12 showed likely metastatic disease within the abdomen. - Will follow up outpatient (6) Migraine: Subjective 58yo Fw/ hx of metastatic breast cancer who presented due to dehydration and diarrhea. This morning, she is similar to yesterday. No nausea. Still some diarrhea. Reports no fevers/chills, chest pain, shortness of breath, abdominal pain. Physical Exam Vital Signs (Past 24 Hours): Last Vital Signs Temp 36.6 C 08/13/18 07:09 Pulse 76 08/13/18 07:09 Resp 16 08/13/18 07:09 BP 132/71 08/13/18 07:09 Pulse Ox 93 08/13/18 07:09 Constitutional: WD/WN, vitals as above Eyes: EOM intact bilaterally; no conjunctival abnormality ENMT: external ear and nose normal, oropharynx normal Neck: trachea midline, no thyromegaly normal visual inspection Respiratory: normal respiratory effort, lungs clear to auscultation no respiratory distress Cardiovascular: RRR, no murmur, no edema Gastrointestinal (Abdomen): Inspection/Auscultation: abdomen normal to i nspection; abdomen not distended Musculoskeletal: no cyanosis or clubbing, extremities motor strength 5/5 Skin: no rashes, warm and dry Neurologic: moves all extremities and awake Psychiatric: Orientation: alert, oriented to person and cooperative
[2018-08-13 15:20] VITALS: O2SAT 94
--- NOTE | 2018-08-13 15:31 | Hospitalist Progress Note ---
Date of Service August 13, 2018 Assessment & Plan (1) C. difficile diarrhea: Concern for C. diff as patient was on abx while in the hospital during prior admission. CT a/p on 08/12 showed pancolitis, concerning for infectious/inflammatory process. C. diff test on 08/12 had PCR positive, but to [place] negative testing, indicating carrier status. However, given the elevated WBC, imaging, and clinical findings, we are treating. - Continue PO vancomycin (2) Acute renal failure: Baseline Cr is ~1.1 with elevation due to the post-renal hydronephrosis from the lymph node enlargement from cancer. Had gone up to 2, but was down to 1.5 on discharge on 08/10. On admission, Cr was up to 3.4. - Seen by nephrology with thought that it is possibly ATN vs. post-renal obstruction - Continue IV fluids; monitor Cr - Initially on cefepime for UTI, but stopped on 08/11 after urine culture was negative and discussed with urology - Cr up to 5 on 08/13, but no acute needs for HD (3) Acute bilateral obstructive uropathy: Due to lymphadenopathy from metastatic cancer. S/p bilateral ureteral stent placement on 08/[address] a/p on 08/12 showed the stents in good position. - Seen by urology - No acute need for adjustment; recommend transfer to tertiary care center for possible nephrostomy tubes - Monitor UOP - Overnight shift on 08/12-08/13, only had 75 mL output. No UOP on 08/13. (4) Hypovolemic shock: Due to diarrhea and poor PO intake. Lowest pressure was 80/60 in the ED. Resolved with 4L IV fluids. Will treat diarrhea as above. - Continue IV fluids - Monitor BP - As of 08/13, BP is 155/80 (5) Metastatic breast cancer: Originally diagnosed in 2008, metastasis to T9 in 2010. Patient is status post multiple chemotherapy regimens and radiation to the spine. CT a/p on 08/12 showed likely metastatic disease within the abdomen. - Will follow up outpatient (6) Hypertension: Prior admission, she was hypertensive. Presently holding home propranolol 20mg BID for hypotension. - Monitor BP (7) DVT prophylaxis: SCDs Physical Exam Vital Signs (Past 24 Hours): Last Vital Signs Temp 36.6 C 08/13/18 15:19 Pulse 75 03/20/19 15:19 Resp 20 08/13/18 15:19 BP 156/80 H 08/13/18 15:19 Pulse Ox 94 08/13/18 15:19 Constitutional: WD/WN, vitals as above Eyes: EOM intact bilaterally; no conjunctival abnormality ENMT: external ear and nose normal, oropharynx normal Neck: trachea midline, no thyromegaly normal visual inspection Respiratory: normal respiratory effort, lungs clear to auscultation no respiratory distress Cardiovascular: RRR, no murmur, no edema Gastrointestinal (Abdomen): Inspection/Auscultation: abdomen normal to inspection; abdomen not distended Musculoskeletal: no cyanosis or clubbing, extremities motor strength 5/5 Skin: no rashes, warm and dry Neurologic: moves all extremities and awake Psychiatric: Orientation: alert, oriented to person and cooperative (1) Hypertension Hypertension type: unspecified Qualified Code(s): I10 - Essential (primary) hypertension
--- NOTE | 2018-08-13 17:03 | Discharge Summary ---
Date of Service August 13, 2018 Admission HPI Per Admitting Provider This is a 58-year-old fame female with past medical history of metastatic breast cancer originally diagnosed years ago who follows with oncology in [place] and is currently on Afinitor. She was recently admitted from 08/06/18 to 08/10/18 (yesterday) for right-sided flank pain and was found to have bilateral hydronephrosis due to lymphadenopathy secondary to metastatic breast cancer. Bilateral ureteral stents were placed 08/09/2018, patient's kidney function was trending back to normal. Her is at the bedside and helps provide a history. He states that they left the hospital, and returned home. She began having a headache and complained of one loose bowel movement. He gave her 600 mg of ibuprofen. The next day she woke up with a headache that was persistent, and he got her Excedrin for migraine. She then began having profuse stools. She had nausea and some vomiting. She was unable to keep p.o. fluids. He brought her in for concern of dehydration. In the ED she was found to be hypotensive and she was given fluid boluses. Renal ultrasound showed bilateral stents in place. Labs were remarkable for an elevated white count 20,000, stable hemoglobin and hematocrit. Chemistry revealed elevated BUN/creatinine from 39/1.54 on day of discharge, to 55/3.43 today. Urology was consulted and recommendations were made to monitor output. Hospitalist was consulted for further evaluation. Principal Diagnosis Obstructive uropathy, c. diff infection, hypotension Discharge Exam Constitutional WD/WN, vitals as above Eyes EOM intact bilaterally; no conjunctival abnormality ENMT external ear and nose normal, oropharynx normal Neck trachea midline, no thyromegaly normal visual inspection Respiratory normal respiratory effort, lungs clear to auscultation no respiratory distress Cardiovascular RRR, no murmur, no edema Gastrointestinal (Abdomen) Inspection/Auscultation: abdomen normal to inspection; abdomen not distended Musculoskeletal no cyanosis or clubbing, extremities motor strength 5/5 Skin no rashes, warm and dry Neurologic moves all extremities and awake Psychiatric Orientation: alert, oriented to person and cooperative Discharge Data Allergies Allergy/AdvReac Type Severity Reaction Status Date / Time amoxicillin Allergy Mild RASH Verified 08/11/18 19:26 Consultations 08/11/18 21:03 ED Decision to Admit Stat 08/11/18 23:32 Consult Case Management - Discharge Planning Routine Consult Staffing Administrator Routine Consult Urology Routine 08/12/18 08:57 Consult Nephrology Routine Ordered Studies 08/11/18 18:28 US renal/blad retro comp Stat 08/12/18 09:09 CT abd pelvis wo con Routine Hospital Course (1) Acute renal failure: Baseline Cr is ~1.1 (on 08/06/2018) with elevation due to the post-renal hydronephrosis from the lymph node enlargement from cancer. Had gone up to 2 on 08/08, but was down to 1.5 on discharge on 08/10 after her bilateral ureteral stents which were placed on 08/09. On re-admission on 08/11, Cr was up to 3.4. By 08/13, Cr was up to 5.1. Patient had only 150 mL UOP on 08/12, and no UOP on 08/13. - Seen by nephrology with thought that it is possibly ATN from her hypotension vs. post-renal obstruction. - Continue IV fluids; monitor Cr - Initially on cefepime for UTI, but stopped on 08/11 after urine culture was negative and discussed with urology - Cr up to 5 on 08/13, but no acute needs for HD. - Discussed with [facility] who agree that nephrostomy tubes are likely required and accept for transfer. (2) Acute bilateral obstructive uropathy: Due to lymphadenopathy from metastatic cancer. No known prior intra- peritoneal disease before her pelvic CT scan done on 08/06 for left flank pain. S/p bilateral ureteral stent placement on 08/[address] Tony Fuller. Repeat CT a/p on 08/12 showed the stents in good position with continued mild/moderate bilateral hydronephrosis. - Seen by urology - No acute need stent for adjustment; recommend transfer to tertiary care center for possible nephrostomy tubes - Monitor UOP - Overnight shift on 08/12-08/13, only had 75 mL output. No UOP on 08/13. (3) C. difficile diarrhea: Concern for C. diff as patient was on abx while in the hospital during prior admission. CT a/p on 08/12 showed pancolitis, concerning for i nfectious/inflammatory process. C. diff test on 08/12 had PCR positive, but toxin negative testing, indicating carrier status. However, given the elevated WBC (21 on admission, down to 15 on 08/13), CT imaging, and clinical findings, we are treating. - Continue vancomycin 250mg PO QID - On 08/12, had 4 loose BMs; had improved to 1 loose BM on 08/13 per nursing reports. (4) Hypovolemic shock: Due to diarrhea and poor PO intake. Lowest pressure recorded was 80/60 in the ED. Resolved with 4L IV fluids. Will treat diarrhea as above. - Continue IV fluids - Monitor BP - As of 08/13, BP is 155/80 (5) Metastatic breast cancer: Originally diagnosed in 2008, metastasis to T9 in 2010. Patient is status post multiple chemotherapy regimens and radiation to the spine. CT a/p on 08/12 showed likely metastatic disease within the abdomen. She follows at [facility] in [place]. Per report, she is on everolimus as maintainence. As far as I am aware, the intra-peritoneal disease is a new diagnosis and would represent spreading disease. - No inpatient treatment while in [facility] (6) Hypertension: Prior admission, she was hypertensive. Presently holding home propranolol 20mg BID for hypotension. - Monitor BP (see above) (7) DVT prophylaxis: SCDs for likely procedure Total Time Total Time Spent Total Time Spent (In Minutes): 50 Total Time Includes: Examination of the Patient, Discharge Planning, Medication Reconciliation and Communication With Other Providers Discharge Plan Discharge Items Patient Disposition: Transfer Acute Care Hospital Reason For Visit: SEPTIC SHOCK Discharge Diagnosis: Obstructive uropathy, hypovolemia, hypotension, C. diff infection Discharge Goals: Diagnostic testing and Therapeutic intervention Activity: Resume your previous activity Non-emergency contact: Primary Care Provider and Urologist Call non-emergency contact if: you have any medication questions Follow-up/Referrals: Allegra Esteban DO [Primary Care Provider] - Diet: Regular Addtl Provider Instructions: Ms. Pope was admitted with hypotension to the 80/60 range. Blood pressure returned to normal with 5L of IVFs. She was thought to have a C. diff infection (see discharge summary) and was started on PO vanc. She was seen by urology who felt her bilateral ureteral stents could be obstructed by metastatic breast cancer and recommended she undergo nephrostomy tube placement. Prescriptions: New hydromorphone 0.5 mg/0.5 mL Syringe 0.5 mg IV Q4H PRN (Reason: pain) Qty: 0.5 RF: 0 raspberry Syrup See Rx Instructions .ROUTE .COMPLEX Qty: 480 RF: 0 ondansetron HCl (PF) 4 mg/2 mL Solution 4 mg IV Q4H PRN (Reason: nausea and vomiting) Qty: 1 RF: 0 vancomycin 1,000 mg Recon Soln 250 mg PO Q6 Qty: 1 RF: 0 Discontinued propranolol 20 mg Tablet 20 mg PO BID Qty: 60 RF: 0 potassium chloride 10 mEq capsule, extended release 10 meq PO DAILY Qty: 10 RF: 0 Stand-Alone Forms: [facility] Discharge Orders: Discharge Order (Routine); Ordered 08/13/18 Ordered By: Jw Mejias Admission Data Admit Date/Time: 08/11/18 22:24 Attending Provider: Jw Mejias Admit Provider: Rosetta Larsen Primary Care Provider: Allegra Esteban Other Providers: Jw Mejias ; Zuhair Schaeffer ; Fabiana Montiel Stephen H. II ; Remi Chacon Service: Medical
[2018-08-13] MEDS ORDERED: BISMUTH SUBSALICYLATE SUSP PO PRN (19:20)
[2018-08-13] MEDS ORDERED: CALCIUM CARBONATE 500 MG CHEWABLE TAB PO PRN (19:23)
[2018-08-13] MEDS ORDERED: SODIUM CHLORIDE 0.9% 1000ML 1,000 ML IV SCH (20:30)
[2018-08-13 22:49] VITALS: BP 91/65; PULSE 86
== END 2018-08-13 22:49 | disposition short-term general hospital (02) | DRG 871 ==
LOC: ED 18:13 → SUATTDRO 22:24 → 1E 22:24 → 4W 08-12 19:14